=== PATIENT | female | born 1990 | race Asian ===

== ENCOUNTER 2017-04-22 08:00 | Outpatient (CLI) | payer MEDICAID | END 2017-04-22 08:01 | disposition home or self-care (01) | LOC: LAB.N 08:00 | PROVIDERS: ATTEND Physician Assistant | DX: R53.83 Other fatigue (principal) | CPT/HCPCS: 36415; 84443 ==

== ENCOUNTER 2019-06-01 14:31 | Outpatient (CLI) | payer MEDICAID ==
[2019-06-01 18:53] LABS: BASOPHILS % (AUTO) 0.4 %; EOSINOPHILS % (AUTO) 0.4 %; HGB - HEMOGLOBIN 13.5 g/dL (12.0-16.0); LYMPHOCYTES # (AUTO) 2.3 10^3/uL (1.5-3.5); LYMPHOCYTES % (AUTO) 33.6 %; MEAN CORPUSCULAR HGB CONC 33.3 g/dL (32.0-36.0); MEAN CORPUSCULAR VOLUME 90.2 fL (81.0-99.0); MEAN PLATELET VOLUME 11.7 fL (7.9-10.8); MONOCYTES # (AUTO) 0.4 10^3/uL (0.0-1.0); MONOCYTES % (AUTO) 5.3 %; NEUTROPHILS # (AUTO) 4.1 10^3/uL (1.5-6.6); PLT - PLATELET COUNT 211 10^3/uL (130-450); WHITE BLOOD COUNT 6.9 x10^3/uL (4.8-10.8)
[2019-06-01 19:07] LABS: CALCIUM 9.9 mg/dL (8.5-10.3); CREATININE 0.8 mg/dL (0.4-1.0)
== END 2019-06-01 23:59 | disposition home or self-care (01) ==
LOC: LAB.N 14:31
PROVIDERS: ATTEND Physician Assistant Medical
DX: F41.1 Generalized anxiety disorder (principal); I10 Essential (primary) hypertension; K21.9 Gastro-esophageal reflux disease without esophagitis
CPT/HCPCS: 36415; 80048; 84443; 85025

== ENCOUNTER 2020-01-24 12:55 | Outpatient (CLI) | payer MEDICAID ==
--- NOTE | 2020-01-24 14:34 | Ultrasound Report ---
Reason: POSITIVE TEST Procedure Date: 01/24/2020 Accession Number: [id number] / [id number] Procedure: US - OB First Trimester CPT Code: Final Report FULL RESULT: EXAM: FIRST TRIMESTER OBSTETRIC ULTRASOUND (Less than 11 weeks) EXAM DATE: 01/24/2020 01:36 PM. CLINICAL HISTORY: POSITIVE TEST. LMP: 11/28/2019. COMPARISONS: None. TECHNIQUE: Transabdominal ultrasound examination with static image documentation. CLINICAL DATES: EGA 8 weeks 1 day with YUMIKO 09/03/2020 based on LMP. ASSESSMENT: Gestational Sac: Single intrauterine. Mean gestational sac diameter: 27.0 mm = 7 weeks 5 days. Embryo: CRL (crown-rump length) 13.8 mm = 7 weeks 5 days. Cardiac activity: 168 beats per minute. Yolk sac: 3 mm. Amniotic fluid: Not accurately assessed at this gestational age. Early placenta: Not visible at this gestational age. Other: No perigestational fluid collection demonstrated. MATERNAL STRUCTURES: Uterus: Retroverted. Unremarkable. Cervix: Closed. Right Ovary/Adnexa: The ovary measures 4 x 3.1 x 2.2 cm, volume 14.3 cc. 1.8 x 1.3 x 2.0 cm corpus luteum. Left Ovary/Adnexa: The ovary measures 2.8 x 1.9 x 1.5 cm, volume 4.2 cc. Unremarkable. Free Fluid: None. Other: None. IMPRESSION: 1. Single viable intrauterine at EGA 7 weeks 5 days with YUMIKO 09/06/2020 based on crown-rump length, which is concordant with clinical dates. 2. Assigned dating is YUMIKO 09/06/2020 based on current ultrasound. RADIA
== END 2020-01-24 12:56 | disposition home or self-care (01) ==
LOC: DI 12:55
PROVIDERS: ATTEND Advanced Practice Midwife
DX: Z32.01 Encounter for pregnancy test, result positive (principal)
CPT/HCPCS: 76801

== ENCOUNTER 2020-02-09 08:00 | Outpatient (CLI) | payer MEDICAID ==
[2020-02-09 11:57] LABS: MUDS CUTOFF CONCENTRATIONS CUTOFF CONC BELOW:
[2020-02-09 18:12] LABS: BASOPHILS % (AUTO) 0.3 %; EOSINOPHILS % (AUTO) 0.4 %; HGB - HEMOGLOBIN 11.3 g/dL (12.0-16.0); LYMPHOCYTES # (AUTO) 1.7 10^3/uL (1.5-3.5); LYMPHOCYTES % (AUTO) 24.1 %; MEAN CORPUSCULAR HEMOGLOBIN 31.5 pg (27.0-31.0); MEAN CORPUSCULAR HGB CONC 33.1 g/dL (32.0-36.0); MEAN PLATELET VOLUME 11.5 fL (7.9-10.8); MONOCYTES # (AUTO) 0.3 10^3/uL (0.0-1.0); MONOCYTES % (AUTO) 4.4 %; NEUTROPHILS # (AUTO) 5.1 10^3/uL (1.5-6.6); NEUTROPHILS % (AUTO) 70.4 %; PLT - PLATELET COUNT 184 10^3/uL (130-450); RED BLOOD COUNT 3.59 10^6/uL (4.20-5.40); RED CELL DISTRIBUTION WIDTH 13.2 % (12.0-15.0); WHITE BLOOD COUNT 7.2 x10^3/uL (4.8-10.8)
[2020-02-09 18:36] LABS: ALBUMIN/GLOBULIN RATIO 1.4 (1.0-2.2); BILIRUBIN,TOTAL 0.5 mg/dL (0.2-1.0); CALCIUM 9.4 mg/dL (8.5-10.3); CREATININE 0.6 mg/dL (0.4-1.0); TOTAL PROTEIN 6.9 g/dL (6.7-8.2)
[2020-02-09 18:37] LABS: BILIRUBIN,URINE NEGATIVE (NEGATIVE); GLUCOSE, URINE (UA) NEGATIVE (NEGATIVE); KETONES,URINE (UA) NEGATIVE (NEGATIVE); LEUKOCYTE ESTERASE, URINE NEGATIVE (NEGATIVE); NITRITE,URINE NEGATIVE (NEGATIVE); OCCULT BLOOD,URINE NEGATIVE (NEGATIVE); PROTEIN,URINE NEGATIVE (NEGATIVE); UROBILINOGEN,URINE 0.2 (NORMAL) E.U./dL (NORMAL)
[2020-02-09 19:02] LABS: BACTERIA,URINE None Seen /HPF (None Seen); CLARITY,URINE CLEAR (CLEAR); RBC,URINE None Seen /HPF (0-5); SQUAMOUS EPITHELIAL CELL,UR RARE Squamous (<= Few)
[2020-02-09 19:07] LABS: AMPHETAMINE SCREEN,URINE NEGATIVE (NEGATIVE); BENZODIAZEPINES SCREEN, URINE NEGATIVE (NEGATIVE); COCAINE SCREEN URINE NEGATIVE (NEGATIVE); METHADONE SCREEN, URINE NEGATIVE (NEGATIVE); METHAMPHETAMINES SCREEN, URINE NEGATIVE (NEGATIVE); OPIATE SCREEN, URINE NEGATIVE (NEGATIVE); OXYCODONE SCREEN, URINE NEGATIVE (NEGATIVE); PROPOXYPHENE SCREEN, URINE NEGATIVE (NEGATIVE); TRICYCLIC ANTIDEPRESSANT,URINE NEGATIVE (NEGATIVE)
[2020-02-10 10:55] LABS: HIV AG/AB 4TH GEN NON-REACTIVE (NON-REACTIVE)
[2020-02-10 13:04] LABS: HEPATITIS B SURFACE ANTIGEN NON-REACTIVE (NON-REACTIVE)
== END 2020-02-09 23:59 | disposition home or self-care (01) ==
LOC: LAB.WCP 08:00
PROVIDERS: ATTEND Obstetrics & Gynecology
DX: Z36.89 Encounter for other specified antenatal screening (principal); O16.9 Unspecified maternal hypertension, unspecified trimester; E66.9 Obesity, unspecified
CPT/HCPCS: 36415; 80053; 80306; 81001; 81599; 82570; 83497; 84156; 85025; 86592; 86762; 86850; 86900; 86901; 87086; 87340; 87389; 87522

== ENCOUNTER 2020-02-10 07:00 | Outpatient (CLI) | payer MEDICAID ==
[2020-02-10 19:58] LABS: CREATININE 24 HOUR,URINE 1610 mg/24h (600-1800); CREATININE,URINE 57.5 mg/dL; TOTAL VOLUME 24HRS,URINE 2800 mL
[2020-02-10 20:20] LABS: TOTAL PROTEIN,URINE TIMED < 6 mg/dL
== END 2020-02-10 23:59 | disposition home or self-care (01) ==
LOC: LAB.R 07:00
PROVIDERS: ATTEND Obstetrics & Gynecology
DX: O16.9 Unspecified maternal hypertension, unspecified trimester (principal)
CPT/HCPCS: 81599; 82570; 84156

== ENCOUNTER 2020-04-03 12:17 | Outpatient (CLI) | payer MEDICAID | END 2020-04-03 12:18 | disposition home or self-care (01) | LOC: LAB 12:17 | PROVIDERS: ATTEND Obstetrics & Gynecology | DX: O99.019 Anemia complicating pregnancy, unspecified trimester (principal); D64.9 Anemia, unspecified; Z3A.00 Weeks of gestation of pregnancy not specified | CPT/HCPCS: 36415; 81511; 81599; 82728; 83021; 83540; 85014; 85018; 85041 ==

== ENCOUNTER 2020-04-18 15:53 | Outpatient (CLI) | payer MEDICAID ==
--- NOTE | 2020-04-19 11:09 | Ultrasound Report ---
PROCEDURE: OB Detailed Eval INDICATIONS: SUPERVISION OF NORMAL OUTSIDE/PRIOR DATING DATA: Last menstrual period (LMP): 11/28/19. LMP-based estimated date of delivery (YUMIKO): 09/03/20. First dating scan (date and location): 01/24/20. Estimated date of delivery (YUMIKO) from first dating scan: 09/06/20. TECHNIQUE: Real-time scanning was performed of the fetus, with image documentation and biometric measurements. COMPARISON: 11/24/19. FINDINGS: General: A single living intrauterine gestation is present. Presentation: Transverse, variable. Placenta: Placental position is fundal, without previa. Amniotic fluid index: 14.8 cm, at the 57th percentile for gestational age. Largest pocket 4.2 cm. heart rate: 157 beats per minute. Maternal cervical canal: 4.4 cm long; normal length is 2.5 cm or more. biometrics: Biparietal diameter: 4.8 cm, 20 weeks 3 days Head circumference: 17.5 cm, 20 weeks Abdominal circumference: 15 cm, 20 weeks 2 days Femur length: 3.2 cm, 20 weeks 0 days Estimated gestational age from initial scan: 19 weeks 6 days Composite gestational age from present scan: 20 weeks 2 days Estimated weight and percentile: 337 g, 64th percentile Measurement variability in biometric dating: +/- 10 days from 12-20 weeks gestation, +/- 2 weeks from 20-30 weeks gestation, +/- 3 weeks at 30 weeks gestation or later. Anatomic survey: Neuro: Ventricles are normal at less than 10 mm. Cisterna magna is normal at 3-11 mm. Cerebellum i s normal in size and morphology. Nuchal skin fold: Normal at less than 6 mm between 14 and 20 weeks gestational age. Face: Nose and lips, facial profile are normal. Spine: No evidence for spina bifida. Heart: 4-chambered heart is present, with normal ventricular outflow tracts. Diaphragm: Diaphragm is intact. Stomach: Left-sided stomach is present. Kidneys: No hydronephrosis. Normal is less than 5 mm in 2nd trimester, less than 7 mm in 3rd trimester. Cord: 3 vessel cord has orthotopic insertion. Bladder: Normal in size. Extremities: All 4 extremities are visualized. IMPRESSION: 1. Single living intrauterine demonstrating appropriate interval growth with estimated feta l weight at 64th percentile. 2. anatomic survey within normal limits. Reviewed by: Ramos Giron MD on 04/19/2020 11:07 AM PDT Approved by: Ramos Giron MD on 04/19/2020 11:07 AM PDT Station ID: [id number]
== END 2020-04-18 15:54 | disposition home or self-care (01) ==
LOC: DI 15:53
PROVIDERS: ATTEND Obstetrics & Gynecology
DX: Z34.80 Encounter for supervision of other normal pregnancy, unspecified trimester (principal)
CPT/HCPCS: 76811

== ENCOUNTER 2020-07-24 12:17 | Outpatient (CLI) | payer MEDICAID ==
[2020-07-24] MEDS ORDERED: FERRIC GLUCONATE 125 MG in SODIUM CHLORIDE 0.9% 100ML 100 ML IV ONE (12:30)
[2020-07-24 12:55] VITALS: BP 125/78
--- NOTE | 2020-07-24 14:46 | Ultrasound Report ---
PROCEDURE: OB Limited INDICATIONS: Chronic HTN, YUMIKO 09/03/2020 OUTSIDE/PRIOR DATING DATA: Last menstrual period (LMP): 11/28/2019. LMP-based estimated date of delivery (YUMIKO): 09/03/2020. First dating scan (date and location): 01/24/2020. Estimated date of delivery (YUMIKO) from first dating scan: 09/03/2020. TECHNIQUE: Real-time scanning was performed of the fetus, with image documentation. COMPARISON: OB ultrasound 07/19/2020 FINDINGS: A single living intrauterine gestation is present. Presentation: Vertex Placenta: Placental position is fundal, without previa. Amniotic fluid index: 8 cm, 4.8 percentile for gestational age. Largest pocket 5.2 cm. A gestational age of 19 weeks 6 days, SUE was measured at the 57th percentile. heart rate: 136 beats per minutes. Maternal cervical canal: 3.5 cm long; normal length is 2.5 cm or more. Estimated gestational age from initial scan: 34 weeks 1 day. BPP: Tone: 2 Movement: 2 Respiration: 2 SUE: 2 IMPRESSION: 1. Single live intrauterine with BPP of 8 out of 8. 2. SUE measures the 4.8 percentile for gestational age, with largest pocket measuring 5.2 cm. Clinica l and ultrasound imaging follow-up is recommended. Reviewed by: Margaux Elizabeth MD on 07/24/2020 2:44 PM PST Approved by: Margaux Elizabeth MD on 07/24/2020 2:44 PM PST Station ID: [id number]
--- NOTE | 2020-07-28 09:46 | PROCEDURE REPORT ---
- HPI Diagnosis/Indication for NST: Pre- Hypertension Current EDU 09/03/20 Gestation 34 Weeks and 1 Days 2 Para 1 Vital Signs Temperature 98.8 F 07/24/20 12:53 Heart Rate 86 07/24/20 12:53 Respiratory Rate 18 07/24/20 12:53 Blood Pressure 125/78 07/24/20 12:53 O2 Saturation 99 07/24/20 12:53 Temperature 98.8 F 07/24/20 12:53 Heart Rate 86 07/24/20 12:53 Respiratory Rate 18 07/24/20 12:53 Blood Pressure 125/78 07/24/20 12:53 O2 Saturation 99 07/24/20 12:53 - NST Procedure NST Procedure Start Date 07/24/20 Start Time 12:12 Stop Time 12:48 Vibroacoustic Stimulation Used No Patient States Movement Yes - Results and Plan Findings/Impression: NST done for routine surveillance. Pt also received a scheduled IV iron transfusion in triage for her anemia. Category 1 NST [employer] [employer] neg Plan: continue ongoing outpt surveillance schedule.
== END 2020-07-24 14:00 | disposition home or self-care (01) ==
LOC: WFO 12:17 → MERGE 12:17 → FBP 12:18 → WFO 14:00
PROVIDERS: ATTEND Obstetrics & Gynecology
DX: O13.3 Gestational [pregnancy-induced] hypertension without significant proteinuria, third trimester (principal); O99.013 Anemia complicating pregnancy, third trimester; D64.9 Anemia, unspecified; Z3A.34 34 weeks gestation of pregnancy
CPT/HCPCS: 59025; 76815; 96365; J2916

== ENCOUNTER 2020-07-27 13:05 | Outpatient (CLI) | payer MEDICAID ==
[2020-07-27 13:27] VITALS: BP 122/82
--- NOTE | 2020-07-28 09:44 | PROCEDURE REPORT ---
- HPI Diagnosis/Indication for NST: Pre- Hypertension Current EDU 09/03/20 Gestation 34 Weeks and 4 Days 2 Para 1 Vital Signs Temperature 98.2 F 07/27/20 13:22 Heart Rate 87 07/27/20 13:22 Respiratory Rate 16 07/27/20 13:22 Blood Pressure 122/82 H 07/27/20 13:22 O2 Saturation 100 07/27/20 13:22 Temperature 98.2 F 07/27/20 13:22 Heart Rate 87 07/27/20 13:22 Respiratory Rate 16 07/27/20 13:22 Blood Pressure 122/82 H 07/27/20 13:22 O2 Saturation 100 07/27/20 13:22 - NST Procedure NST Procedure Start Date 07/27/20 Start Time 13:21 Stop Time 14:25 Vibroacoustic Stimulation Used No Patient States Movement Yes - Results and Plan Findings/Impression: Category 1 NST [place] neg Continue outpatient surveillance
== END 2020-07-27 14:30 | disposition home or self-care (01) ==
LOC: WFO 13:05 → FBP 13:14 → WFO 14:30
PROVIDERS: ATTEND Obstetrics & Gynecology
DX: O10.913 Unspecified pre-existing hypertension complicating pregnancy, third trimester (principal); Z3A.34 34 weeks gestation of pregnancy
CPT/HCPCS: 59025

== ENCOUNTER 2020-08-03 13:52 | Outpatient (CLI) | payer MEDICAID | END 2020-08-03 13:53 | disposition home or self-care (01) | LOC: WFO 13:52 | PROVIDERS: ATTEND Obstetrics & Gynecology | DX: O13.9 Gestational [pregnancy-induced] hypertension without significant proteinuria, unspecified trimester (principal) ==

== ENCOUNTER 2020-08-04 14:39 | Outpatient (CLI) | payer MEDICAID ==
--- NOTE | 2020-08-04 17:01 | Ultrasound Report ---
PROCEDURE: OB F/U or Repeat INDICATIONS: SUPER OF HIGH RISK PREG, HTN COMPLICATING PREG OUTSIDE/PRIOR DATING DATA: Last menstrual period (LMP): 3.920. LMP-based estimated date of delivery (YUMIKO): 21420. First dating scan (date and location): 5.20. Estimated date of delivery (YUMIKO) from first dating scan: . TECHNIQUE: Real-time scanning was performed of the fetus, with image documentation and biometric measurements. Endovaginal scanning: COMPARISON: None. FINDINGS: General: A single living intrauterine gestation is present. Presentation: Vertex Placenta: Placental position is maternal right, without previa. Amniotic fluid index: 9.4 cm, 11.5th percentile for gestational age. heart rate: 139 beats per minute. Maternal cervical canal: 5.6 cm long; normal length is 2.5 cm or more. biometrics: Biparietal diameter: 84 mm; 33 weeks 6 days Head circumference: 313 mm; 35 weeks 0 days Abdominal circumference: 326 mm; 36 weeks 4 days Femur length: 65 mm; 33 weeks 2 days Estimated gestational age from initial scan: 35 weeks 5 days. Composite gestational age from present scan: 36 weeks 2 days Estimated weight and percentile: 2637 g, which is at the 37th percentile for gestational age Measurement variability in biometric dating: +/- 10 days from 12-20 weeks gestation, +/- 2 weeks from 20-30 weeks gestation, +/- 3 weeks at 30 weeks gestation or more. Limited survey of anatomy currently includes normal chest/diaphragm, stomach/abdomen, bilateral renal regions, urinary bladder/pelvis, right upper and lower extremities. IMPRESSION: 1. Single living intrauterine gestation. 2. Estimated weight is at the 37th percentile for gestational age. Reviewed by: Leah Villagran MD on 08/04/2020 4:00 PM [facility] Approved by: Leah Villagran MD on 08/04/2020 4:00 PM [facility] Station ID: [id number]
== END 2020-08-04 14:40 | disposition home or self-care (01) ==
LOC: DI 14:39
PROVIDERS: ATTEND Obstetrics & Gynecology
DX: O09.90 Supervision of high risk pregnancy, unspecified, unspecified trimester (principal); O16.9 Unspecified maternal hypertension, unspecified trimester; Z3A.35 35 weeks gestation of pregnancy
CPT/HCPCS: 76816

== ENCOUNTER 2020-08-07 | Outpatient (CLI) | payer MEDICAID ==
--- NOTE | 2020-08-10 18:13 | PROCEDURE REPORT ---
- HPI Diagnosis/Indication for NST: Pre- Hypertension Current EDU 09/03/20 Gestation 36 Weeks and 1 Days 2 Para 1 Vital Signs Temperature 97.9 F 08/07/20 12:45 Heart Rate 67 08/07/20 12:45 Respiratory Rate 16 08/07/20 12:45 Blood Pressure 134/89 H 08/07/20 12:45 O2 Saturation 99 08/07/20 12:45 Temperature 97.9 F 08/07/20 12:45 Heart Rate 67 08/07/20 12:45 Respiratory Rate 16 08/07/20 12:45 Blood Pressure 134/89 H 08/07/20 12:45 O2 Saturation 99 08/07/20 12:45 - NST Procedure NST Procedure Start Date 08/07/20 Start Time 12:42 Stop Time 13:05 Vibroacoustic Stimulation Used No Patient States Movement Yes EFM 135 mod lucero 15x15 accels no decels TOCO: irritable - Results and Plan Findings/Impression: 30 yo at 36+1 wga with complicated by CHTN Cat I tracing/RRNST Cont with twice weekly NST and weekly SUE
== END 2020-08-07 13:09 | disposition home or self-care (01) ==
CPT/HCPCS: 59025; 87491; 87591; 87661; 87797; 87801

== ENCOUNTER 2020-08-07 08:00 | Outpatient (CLI) | payer MEDICAID ==
[2020-08-08 22:00] LABS: CANDIDA GROUP DNA NEGATIVE (NEGATIVE); CANDIDA KRUSEI DNA NEGATIVE (NEGATIVE); TRICHOMONAS VAGINALIS DNA NEGATIVE (NEGATIVE)
[2020-08-08 23:38] LABS: TRICHOMONAS VAGINALIS DNA NEGATIVE (NEGATIVE)
== END 2020-08-07 23:59 | disposition home or self-care (01) ==
LOC: LAB.R 08:00
PROVIDERS: ATTEND Obstetrics & Gynecology
DX: Z36.85 Encounter for antenatal screening for Streptococcus B (principal); Z11.3 Encounter for screening for infections with a predominantly sexual mode of transmission; Z36.89 Encounter for other specified antenatal screening
CPT/HCPCS: 87491; 87591; 87661; 87797; 87801

== ENCOUNTER 2020-08-10 12:31 | Outpatient (CLI) | payer MEDICAID ==
--- NOTE | 2020-08-10 14:20 | Ultrasound Report ---
PROCEDURE: OB Limited INDICATIONS: HTN COMPLICATING OUTSIDE/PRIOR DATING DATA: Last menstrual period (LMP): 11/28/2019. LMP-based estimated date of delivery (YUMIKO): 09/03/2020. First dating scan (date and location): 01/24/2020. Gene Jacobs Estimated date of delivery (YUMIKO) from first dating scan: 09/06/2020. TECHNIQUE: Real-time scanning was performed of the fetus, with image documentation. COMPARISON: None. FINDINGS: A single living intrauterine gestation is present. Presentation: Cephalic Placenta: Placental position is maternal right, without previa. Amniotic fluid index: 7.2 cm. 4%. heart rate: 149 beats per minutes. Maternal cervical canal: Closed and measures 3.9 cm. MVP = 3 cm. Estimated gestational age from initial scan: 09/06/2020. IMPRESSION: 1. Oligohydramnios with an amniotic fluid index is 7.2 cm, 4th percentile for age. 2. MVP = 3 cm. Reviewed by: Angelo Katz on 08/10/2020 2:19 PM PST Approved by: Angelo Katz on 08/10/2020 2:19 PM PST Station ID: [id number]
== END 2020-08-10 12:32 | disposition home or self-care (01) ==
LOC: DI 12:31
PROVIDERS: ATTEND Obstetrics & Gynecology
DX: O16.2 Unspecified maternal hypertension, second trimester (principal); O41.02X0 Oligohydramnios, second trimester, not applicable or unspecified
CPT/HCPCS: 76815

== ENCOUNTER 2020-08-10 13:01 | Outpatient (CLI) | payer MEDICAID ==
[2020-08-10 13:19] VITALS: BP 124/77
--- NOTE | 2020-08-10 18:05 | PROCEDURE REPORT ---
- HPI Diagnosis/Indication for NST: Other (CHTN) Current EDU 09/03/20 Gestation 36 Weeks and 4 Days 2 Para 1 Vital Signs Temperature 97.5 F L 08/10/20 13:18 Heart Rate 73 08/10/20 13:18 Respiratory Rate 16 08/10/20 13:18 Blood Pressure 124/77 08/10/20 13:18 O2 Saturation 100 08/10/20 13:18 Temperature 97.5 F L 08/10/20 13:18 Heart Rate 73 08/10/20 13:18 Respiratory Rate 16 08/10/20 13:18 Blood Pressure 124/77 08/10/20 13:18 O2 Saturation 100 08/10/20 13:18 - NST Procedure NST Procedure Start Date 08/10/20 Start Time 13:12 Stop Time 14:10 Vibroacoustic Stimulation Used No Patient States Movement Yes EFM 130 mod lucero 15x15 accels no decels TOCO: irritable SUE 7.4 MVP 3 - Results and Plan Findings/Impression: 30 yo at 36+4 wga with affected by CHTN here for NST/SUE Cat I tracing Borderline SUE Offered IV hydration vs oral hydration overnight Patient opting for oral hydration and will return tomorrow for repeat SUE
== END 2020-08-10 14:15 | disposition home or self-care (01) ==
LOC: WFO 13:01 → FBP 13:06 → WFO 14:15
PROVIDERS: ATTEND Obstetrics & Gynecology
DX: O10.913 Unspecified pre-existing hypertension complicating pregnancy, third trimester (principal); Z3A.36 36 weeks gestation of pregnancy; O41.02X0 Oligohydramnios, second trimester, not applicable or unspecified
CPT/HCPCS: 59025

== ENCOUNTER 2020-08-11 13:08 | Outpatient (CLI) | payer MEDICAID ==
[2020-08-11 13:26] VITALS: BP 131/77
--- NOTE | 2020-08-11 14:29 | PROCEDURE REPORT ---
- HPI Diagnosis/Indication for NST: Other (low SUE (borderline) Vital Signs Temperature 97.4 F L 08/11/20 13:24 Heart Rate 70 08/11/20 13:24 Respiratory Rate 16 08/11/20 13:24 Blood Pressure 131/77 H 08/11/20 13:24 O2 Saturation 100 08/11/20 13:24 Temperature 97.4 F L 08/11/20 13:24 Heart Rate 70 08/11/20 13:24 Respiratory Rate 16 08/11/20 13:24 Blood Pressure 131/77 H 08/11/20 13:24 O2 Saturation 100 08/11/20 13:24 - NST Procedure NST Procedure Start Time 13:12 Stop Time 14:10 EFM 135 mod lucero 15x15 accels no decels TOCO: quiet - Results and Plan Findings/Impression: Cat I tracing Prelim read on SUE 13.4 Cont with twice weekly NST and weekly SUE
--- NOTE | 2020-08-11 15:18 | Ultrasound Report ---
PROCEDURE: OB Limited INDICATIONS: Low fluid OUTSIDE/PRIOR DATING DATA: Last menstrual period (LMP): 11/28/2019. LMP-based estimated date of delivery (YUMIKO): 09/03/2020. First dating scan (date and location): 01/24/2020. Estimated date of delivery (YUMIKO) from first dating scan: 09/06/2020. TECHNIQUE: Real-time scanning was performed of the fetus, with image documentation. COMPARISON: None. FINDINGS: A single living intrauterine gestation is present. Presentation: Cephalic Placenta: Placental position is maternal right, without previa. Amniotic fluid index: 13.2 cm. heart rate: 145 beats per minute. Maternal cervical canal: 3.9 cm long; normal length is 2.5 cm or more. Estimated gestational age: 36 weeks 5 days. IMPRESSION: Single live intrauterine gestation with normal anatomic survey, evaluation limited by advanced gestat ional age. heart rate 145 bpm. SUE 13.2 cm. Reviewed by: Alin Dhillon MD on 08/11/2020 3:17 PM PST Approved by: Alin Dhillon MD on 08/11/2020 3:17 PM PST Station ID: [id number]
== END 2020-08-11 14:45 | disposition home or self-care (01) ==
LOC: WFO 13:08 → FBP 13:10 → WFO 14:45
PROVIDERS: ATTEND Obstetrics & Gynecology
DX: O41.03X0 Oligohydramnios, third trimester, not applicable or unspecified (principal)
CPT/HCPCS: 59025

== ENCOUNTER 2020-08-14 12:31 | Outpatient (CLI) | payer MEDICAID ==
[2020-08-14 12:50] VITALS: BP 126/80
--- NOTE | 2020-08-15 17:39 | PROCEDURE REPORT ---
- HPI Diagnosis/Indication for NST: Pre- Hypertension Current EDU 09/03/20 Gestation 37 Weeks and 1 Days 2 Para 1 Vital Signs Temperature 98.4 F 08/14/20 12:46 Heart Rate 86 08/14/20 12:46 Respiratory Rate 18 08/14/20 12:46 Blood Pressure 126/80 08/14/20 12:46 O2 Saturation 100 08/14/20 12:46 Temperature 98.4 F 08/14/20 12:46 Heart Rate 86 08/14/20 12:46 Respiratory Rate 18 08/14/20 12:46 Blood Pressure 126/80 08/14/20 12:46 O2 Saturation 100 08/14/20 12:46 - NST Procedure NST Procedure Start Date 08/14/20 Start Time 12:42 Stop Time 13:05 Vibroacoustic Stimulation Used No Patient States Movement Yes EFM 125 mod lucero 15x15 accels no decels TOCO: quiet - Results and Plan Findings/Impression: 30 yo at 37+1 wga with CHTN here for NST Cat I tracing Cont with twice weekly NST/weekly SUE CS at 39 wga
== END 2020-08-14 13:09 | disposition home or self-care (01) ==
LOC: WFO 12:31 → FBP 12:35 → WFO 13:09
PROVIDERS: ATTEND Obstetrics & Gynecology
DX: O13.3 Gestational [pregnancy-induced] hypertension without significant proteinuria, third trimester (principal); Z3A.37 37 weeks gestation of pregnancy
CPT/HCPCS: 59025

== ENCOUNTER 2020-08-17 12:40 | Outpatient (CLI) | payer MEDICAID ==
[2020-08-17 13:35] VITALS: BP 123/72
--- NOTE | 2020-08-17 13:47 | Ultrasound Report ---
PROCEDURE: OB Limited INDICATIONS: HTN COMPLICATING PREG OUTSIDE/PRIOR DATING DATA: Last menstrual period (LMP): 11/28/2019. LMP-based estimated date of delivery (YUMIKO): 09/03/2020. First dating scan (date and location): 01/24/2020. Estimated date of delivery (YUMIKO) from first dating scan: 09/06/2020. TECHNIQUE: Real-time scanning was performed of the fetus, with image documentation. Endovaginal scanning: Not performed COMPARISON: 08/11/2020, 08/10/2020 FINDINGS: A single living intrauterine gestation is present. Presentation: Vertex Placenta: Placental position is right lateral, without previa. Amniotic fluid index: 11.8 cm, normal for gestational age. Largest pocket measures 4.5 cm. Amount of amniotic fluid is at 33.6 percentile. heart rate: 153 beats per minutes. Maternal cervical canal: 4 cm long; normal length is 2.5 cm or more. Estimated gestational age from initial scan: 37 weeks 4 days. chest, bilateral kidneys, stomach, and bladder are visualized and are within normal limits. IMPRESSION: 1. Single live intrauterine with fetus in vertex presentation. heart rate is 153 bpm. 2. SUE equals 11.8 cm which is at 33.6 percentile. Largest pocket measures 4.5 cm. Reviewed by: Luis Rai MD on 08/17/2020 1:46 PM PST Approved by: Luis Rai MD on 08/17/2020 1:46 PM PST Station ID: [id number]
--- NOTE | 2020-08-18 10:12 | PROCEDURE REPORT ---
- HPI Diagnosis/Indication for NST: Other (CHTN) Current EDU 09/03/20 Gestation 37 Weeks and 4 Days 2 Para 1 Vital Signs Temperature 36.5 C 08/17/20 13:33 Heart Rate 84 08/17/20 13:33 Respiratory Rate 16 08/17/20 13:33 Blood Pressure 123/72 08/17/20 13:33 O2 Saturation 100 08/17/20 13:33 Temperature 36.5 C 08/17/20 13:33 Heart Rate 84 08/17/20 13:33 Respiratory Rate 16 08/17/20 13:33 Blood Pressure 123/72 08/17/20 13:33 O2 Saturation 100 08/17/20 13:33 - NST Procedure NST Procedure Start Date 08/17/20 Start Time 13:33 Stop Time 13:05 Vibroacoustic Stimulation Used No Patient States Movement Yes - Results and Plan Findings/Impression: reactive NST Plan: continue antinatal testing
== END 2020-08-17 14:00 | disposition home or self-care (01) ==
LOC: DI 12:40 → FBP 13:10 → DI 14:00
PROVIDERS: ATTEND Obstetrics & Gynecology
DX: O10.913 Unspecified pre-existing hypertension complicating pregnancy, third trimester (principal); Z3A.37 37 weeks gestation of pregnancy
CPT/HCPCS: 59025

== ENCOUNTER 2020-08-21 11:34 | Outpatient (CLI) | payer MEDICAID ==
--- NOTE | 2020-08-21 23:56 | PROCEDURE REPORT ---
- HPI Diagnosis/Indication for NST: Pre- Hypertension - NST Procedure NST Procedure Start Time 13:33 Stop Time 13:05 - Results and Plan Findings/Impression: Category 1 NST [place] neg Continue routine surveillance
[2020-08-23 15:43] VITALS: BP 119/94
== END 2020-08-21 12:15 | disposition home or self-care (01) ==
LOC: WFO 11:34 → FBP 11:58 → WFO 12:15
PROVIDERS: ATTEND Obstetrics & Gynecology
DX: O10.919 Unspecified pre-existing hypertension complicating pregnancy, unspecified trimester (principal); Z3A.00 Weeks of gestation of pregnancy not specified
CPT/HCPCS: 59025; 99212

== ENCOUNTER 2020-08-24 12:22 | Outpatient (CLI) | payer MEDICAID ==
--- NOTE | 2020-08-24 17:26 | Ultrasound Report ---
PROCEDURE: OB Limited INDICATIONS: HTN COMPLICATING PREG OUTSIDE/PRIOR DATING DATA: Last menstrual period (LMP): 11/28/2019. LMP-based estimated date of delivery (YUMIKO): 09/03/2020. First dating scan (date and location): 01/24/2020. Estimated date of delivery (YUMIKO) from first dating scan: 09/06/2020. TECHNIQUE: Real-time scanning was performed of the fetus, with image documentation. COMPARISON: 08/17/2020 FINDINGS: A single living intrauterine gestation is present. Presentation: Vertex Placenta: Placental position is right lateral, without previa. Amniotic fluid index: 10.9 cm cm, 28th percentile for gestational age. Largest pocket 4.8 cm. heart rate: 1:30 beats per minutes. Maternal cervical canal: 4 cm long; normal length is 2.5 cm or more. Estimated gestational age from initial scan: 38.4. IMPRESSION: 1. SUE is at the 28th percentile slightly decreased from 34th percentile on prior exam. 2. Single live intrauterine . Reviewed by: Margaux Elizabeth MD on 08/24/2020 5:25 PM PST Approved by: Margaux Elizabeth MD on 08/24/2020 5:25 PM PST Station ID: [id number]
== END 2020-08-24 12:23 | disposition home or self-care (01) ==
LOC: DI 12:22
PROVIDERS: ATTEND Obstetrics & Gynecology
DX: O10.913 Unspecified pre-existing hypertension complicating pregnancy, third trimester (principal); Z3A.38 38 weeks gestation of pregnancy

== ENCOUNTER 2020-08-24 12:50 | Outpatient (CLI) | payer MEDICAID ==
[2020-08-24 13:15] VITALS: BP 119/69
--- NOTE | 2020-08-25 09:40 | PROCEDURE REPORT ---
- HPI Diagnosis/Indication for NST: Pre- Hypertension Current EDU 09/03/20 Gestation 38 Weeks and 4 Days 2 Para 1 Vital Signs Temperature 98.4 F 08/24/20 13:13 Heart Rate 87 08/24/20 13:13 Respiratory Rate 16 08/24/20 13:13 Blood Pressure 119/69 08/24/20 13:13 Temperature 98.4 F 08/24/20 13:13 Heart Rate 87 08/24/20 13:13 Respiratory Rate 16 08/24/20 13:13 Blood Pressure 119/69 08/24/20 13:13 O2 Saturation - NST Procedure NST Procedure Start Date 08/24/20 Start Time 13:07 Stop Time 13:43 Vibroacoustic Stimulation Used No Patient States Movement Yes - Results and Plan Findings/Impression: Category 1 NST [place] neg Continue delivery as planned in 3d.
== END 2020-08-24 13:50 | disposition home or self-care (01) ==
LOC: WFO 12:50 → FBP 12:55 → WFO 13:50
PROVIDERS: ATTEND Obstetrics & Gynecology
DX: O10.913 Unspecified pre-existing hypertension complicating pregnancy, third trimester (principal); Z3A.38 38 weeks gestation of pregnancy; Z01.812 Encounter for preprocedural laboratory examination; Z20.828 Contact with and (suspected) exposure to other viral communicable diseases; O34.219 Maternal care for unspecified type scar from previous cesarean delivery
CPT/HCPCS: 59025

== ENCOUNTER 2020-08-24 13:57 | Outpatient (CLI) | payer MEDICAID | END 2020-08-24 13:58 | disposition home or self-care (01) | LOC: LAB 13:57 | PROVIDERS: ATTEND Obstetrics & Gynecology | DX: Z01.812 Encounter for preprocedural laboratory examination (principal); Z20.828 Contact with and (suspected) exposure to other viral communicable diseases; O34.219 Maternal care for unspecified type scar from previous cesarean delivery ==

== ENCOUNTER 2020-08-26 17:25 | Outpatient (CLI) | payer MEDICAID | END 2020-08-26 17:26 | disposition home or self-care (01) | LOC: LAB 17:25 | PROVIDERS: ATTEND Obstetrics & Gynecology | DX: Z53.9 Procedure and treatment not carried out, unspecified reason (principal) ==

== ENCOUNTER 2020-08-27 05:21 | Inpatient (IN) | payer MEDICAID ==
[2020-08-27] MEDS ORDERED: ACETAMINOPHEN 1,000 MG/100 ML 100 ML IV ONE ×2 (05:33→07:55)
[2020-08-27] MEDS ORDERED: ceFAZolin 2 GM in SODIUM CHLORIDE 0.9% 100ML 100 ML IV ONE (05:33)
[2020-08-27] MEDS ORDERED: LACTATED RINGERS 1,000 ML IV SCH ×2 (06:00→11:00)
[2020-08-27] MEDS ORDERED: BUPIVACAINE 0.25%-EPI 1:200000 PF 30 ML VIAL ONE (07:06)
--- NOTE | 2020-08-27 07:17 | ANESTHESIA ---
Pre-Anesthesia VS, & Labs - Diagnosis previous c/s - Procedure repeat c/s Vital Signs: Temp Pulse Resp BP Pulse Ox 36.7 C 70 18 134/87 H 08/27/20 05:57 08/27/20 05:57 08/27/20 05:57 08/27/20 05:57 Height: 5 ft 3 in Weight (kg): 91.626 kg Body Mass Index: 35.7 BMI Classification: Obese - NPO >8 hours - Is Patient ?: Yes Home Medications and Allergies Active Medications Lactated Ringer's (Lr) 1,000 mls @ 125 mls/hr IV .Q8H SHARMILA Last Admin: 08/27/20 06:32 Dose: 125 mls/hr Documented by: labetalol, sertraline Allergies/Adverse Reactions: Allergies Allergy/AdvReac Type Severity Reaction Status Date / Time No Known Drug Allergies Allergy Verified 07/24/20 15:19 Anes History & Medical History - Anesthetic History Family history of Anesthesia Complications: Denies Family history of Malignant Hyperthermia: Denies - Medical History Cardiovascular: reports: Hypertension Pulmonary: reports: None Gastrointestinal: reports: GERD Urinary: reports: None Neuro: reports: None Musculoskeletal: reports: None Endocrine/Autoimmune: reports: None Blood Disorders: reports: Anemia Skin: reports: None Smoking Status: Former smoker Psychosocial: reports: Anxiety History of Cancer?: No - Surgical History Gynecologic: section (under epidural) Exam General: Alert, Oriented x3, Cooperative, No acute distress Dental: WNL Mouth Openin Fingerbreadth Neck Mobility: Normal Mallampati classification: II Thyromental Distance: 4-6 cm Mental/Cognitive Status: Alert/Oriented X3, Normal for patient Plan Anesthesia Type: Spinal Consent for Procedure(s) Verified and Reviewed: Yes Code Status: Attempt Resuscitation ASA classification: 2-Mild systemic disease Is this case an emergency?: No
--- NOTE | 2020-08-27 07:45 | HISTORY & PHYSICAL EXAMINATION ---
Admit History - Visit Reason Visit Reason: Other (Scheduled repeat CS) - : 3 Parity: 1 Care: positive: [facility] Risk/History: positive: induced HTN Smoking Status: Former smoker - Other Maternal History Other Maternal History: Patient is a 30 yo here for scheduled repeat CS Denies LOF/VB/CTX. BPs appropriate Oligo resolved Declines BTL Consents obtained and reconfirmed Dating: LMP 11/28/2019 gives YUMIKO 09/03/2020 Ultrasound on 01/24/2020 at 7 weeks 5 days gives YUMIKO 09/06/2020; consistent with dates Restraining order against FOB 2/2 IPV and meth abuse FOB currently incarcerated CHTN: -On labetalol 200 mg po bid -On ASA -Baseline 24 hour urine and PIH labs wnl -Family hx of cardiomegaly; ordering cards consult. Has not yet seen cardiology -twice weekly NST -growth 37%ile on 08/04/2020 -Borderline SUE at 34 weeks, 08/04/2020 SUE 9.4. Last SUE 13.4 BMI 36 Anxiety: mood improved on sertraline 50 mg O pos/ Rub NON-IMM QUAD wnl Hb electrophoresis and iron wnl FAS wnl, EFW 64%ile, 3VC, fundal placenta TDAP complete Influenza complete Glucola 117 Anemia on bid iron. S/p iron infusions HSV: Denies - Oral (cold sores only). Given rx for valacyclovir for symptoms GBS positive Breast pump: MOD: CS on 08/27/2020. Declined BTL Pap 01/2020 shows ASCUS/HPV positive. Opting for colpo Meds/Allgy - Allergies Allergies/Adverse Reactions: Allergies Allergy/AdvReac Type Severity Reaction Status Date / Time No Known Drug Allergies Allergy Verified 07/24/20 15:19 Review of Systems - Other Findings Other Findings: As per HPI, otherwise remaining systems are negative Physical - Abdominal Exam Vital Signs: Temp Pulse Resp BP Pulse Ox 98.1 F 70 18 134/87 H 08/27/20 05:57 08/27/20 05:57 08/27/20 05:57 08/27/20 05:57 - Monitoring Strip Review: positive: Category I - Other Notes Labor Progress Note/Additional Text: GEN: NAD HEAD: NCAT EYES: No scleral icterus or conjunctival injection NECK: No cervical LAD or TM CV: RRR RESP: CTAB, normal effort ABD: S&NT/ND PSYCH: appropriate affect NEURO: alert and oriented, normal gait and coordination EXT: WWP Plan for Labor - Plan For Labor Plan for Labor: No changes in health hx other than as noted in HPI. Reviewed risks/benefits/alternatives to and BTL Risks include, but are not limited to, bleeding, infection, damage to neatby tissue and organs. On average, EBL of up to 1 liter is considered within normal limits for CS. Risks of blood transfusion include infection Risk of HIV 1/2million nationwide Risk of Hepatitis 1/1 million Risks of transfusion reaction Infection risk moderate given clean/contaminated nature of procedure and IV antibiotics will be given. Damage to nearby tissue and organs including bladder, bowel, ureters, blood vessels, nerves, and fetus Damage may be noted intra-op and may be delayed until after the procedure is complete Reviewed management of complications and efforts to avoid such outcomes but reviewed that they may occur despite our best efforts Confirmed that sterlization is desired Patient understands that tubal ligation is an irreversible process that will result in future infertility Written informed consent obtained.
[2020-08-27] MEDS ORDERED: miSOPROStoL 200 MCG TABLET ONE (07:54)
[2020-08-27] MEDS ORDERED: CARBOPROST TROMETHAMINE 250 MCG/ML AMP IM ONE (07:54)
[2020-08-27] MEDS ORDERED: fentaNYL 100 MCG/2 ML VIAL IVP ONE (07:55)
[2020-08-27] MEDS ORDERED: METHYLERGONOVINE 0.2 MG/ML VIAL ONE (07:55)
[2020-08-27] MEDS ORDERED: PHENYLEPHRINE 10 MG/ML VIAL IV ONE (07:55)
[2020-08-27] MEDS ORDERED: BUPIVACAINE 0.25%-EPI 1:200000 PF 30 ML VIAL SUBQ ONE ×2 (08:08→09:47)
[2020-08-27] MEDS ORDERED: HYDROmorphone 0.5 MG/0.5 ML SYRINGE IVP PRN (09:31)
[2020-08-27] MEDS ORDERED: fentaNYL 100 MCG/2 ML VIAL IVP PRN (09:31)
[2020-08-27] MEDS ORDERED: MORPHINE 2 MG/ML CARPUJECT IVP PRN (09:31)
[2020-08-27] MEDS ORDERED: ONDANSETRON 4 MG/2 ML VIAL IVP PRN (09:31)
[2020-08-27] MEDS ORDERED: NALOXONE 0.4 MG/ML VIAL IVP PRN (09:31)
[2020-08-27] MEDS ORDERED: LACTATED RINGERS 1,000 ML IV ONE (10:00)
[2020-08-27] MEDS ORDERED: OXYTOCIN/SODIUM CHLORIDE 500 ML IV PRN (10:05)
[2020-08-27] MEDS ORDERED: ONDANSETRON ODT 4 MG TABLET TL PRN (10:05)
[2020-08-27] MEDS ORDERED: SODIUM CHLORIDE FLUSH 0.9% 10 ML SYRINGE IVP PRN (10:05)
[2020-08-27] MEDS ORDERED: KETOROLAC 30 MG/ML VIAL IVP ONE (10:08)
--- NOTE | 2020-08-27 10:17 | OPERATIVE REPORT ---
Operative Report - General Admit Date: 08/27/20 Procedure Date: 08/27/20 Planned Procedure: Repeat low transverse Pre-Op Diagnosis: IUP at 39+0 wga, hx of prior , CHTN Procedure Performed: Repeat low transverse Post Op Diagnosis: Same and delivery of term gestation - Procedure Note Primary Surgeon: Jerman Pierson MD Secondary Surgeon: ARIEL Sheldon CNM Anesthesia Provider: Jazmín Jacques CRNA Anesthesia Technique: Spinal Pathology: Placenta for routine discard IV Fluids (mL): 1,200 Estimated Blood Loss (mL): 900 Urine Output (mL): 200 Indications: Patient is a 30 yo at 39+0 wga here for repeat low transverse . has been complicated by chronic hypertension. Findings: Uterus had small divot in the midline of the fundus associated with thinning of the myometrium, suggestive of bicornuate anatomy but two/separate horns were NOT palpated internally. Normal tubes and ovaries. Appendix normal with palpable fecolith. Viable female infant delivered form vertex position with weight and Apgars pending. Complications: None - Other Other Information/Narrative: Risks benefits and alternatives of the procedure were discussed. Written informed consent was obtained. Patient was taken to the operating room where spinal anesthesia was placed and found to be adequate. She was prepped and draped in the usual sterile fashion in the dorsal supine position with a leftward tilt. Ruiz catheter was in place. SCDs were in place and activated. Cefazolin 2 g IV was given as a preoperative antibiotic. Preoperative timeout was performed. A total of 20 cc of 1% lidocaine with epinephrine was injected into the suture line prior to making the incision. A Pfannenstiel incision was made in the skin with a scalpel and carried through the underlying layer of fascia in a combination of sharp and blunt dissection. The fascia was incised in the midline, and the incision was extended laterally with the Perry scissors. The superior aspect of the fascial incision was grasped with the Allen clamps, elevated, and the underlying rectus muscles were dissected off bluntly and sharply using the Perry scissors. Attention was then turned to the inferior aspect of the incision which in a similar fashion was grasped, tented up with Allen clamps, and the underlying rectus muscles dissected off bluntly and sharply using Perry scissors. The rectus muscles were then in the midline. The peritoneum was identified, tented up, and entered bluntly. The peritoneal incision was extended superiorly and inferiorly with good visualization of the bladder. The bladder that blade was then inserted. A bladder flap was created. The lower uterine segment of the uterus was identified, and incised in a transverse fashion with a scalpel. The uterus was entered bluntly. The uterine incision was extended in a craniocaudal fashion by manual stretch. The bladder blade was removed. The infant was delivered from from vertex position with assistance of Kiwi Vacuum with a rigid cup. was delivered with one pull and no pop offs. Baby was wrapped in a warm sterile towel. Delayed cord clamping was performed. After cessation of pulsations, the cord was clamped x2 and cut. The infant was handed off to the waiting pediatric team. The placenta was removed with manual extraction due to mildly adherent placenta. The uterus was exteriorized and cleared of all clots clots and debris via m anual swipe using Ray-Merle x2. The uterine incision was then repaired in a running locked fashion using 0 Vicryl suture. The incisoin was reinforced with a running imbricating layer again using 0-Vicryl suture. Excellent hemostasis was obtained. The uterus was returned to the abdomen. The gutters were cleared of all clots and debris. The pelvis was sloppy wet lap sponges with warm normal saline. The uterine defect was well visualized in normal anatomic position it was noted again to be hemostatic. The peritoneum was then reapproximated with 2-0 Vicryl in a running fashion. The rectus muscles were then reapproximated using interrupted [id number] sutures using 2-0 Chromic. Good hemostasis was noted. The fascia was then closed using 0 Vicryl in a running fashion starting from the left lateral edge to the midline. A second suture was used to close the fascia in a running fashion starting from the right lateral edge and meeting in the midline, agian using 0-Vicryl. The subcutaneous tissue was then irrigated and closed using 2-0 chromic in a running subcutaneous suture. Skin was closed in a running subcuticular suture using 4-0 Monocryl. Steri-Strips were applied to reinforce the incision and dressing was applied. Procedure was well-tolerated and without complication. Sponge lap and needle counts were correct x2. Patient was taken to recovery room in stable condition. [facility] assisted with retraction, delivery of the infant, and suturing.
[2020-08-27] MEDS: KETOROLAC 30 MG/ML VIAL IVP SCH ×4 (10:34→22:56)
[2020-08-27] MEDS ORDERED: DOCUSATE SODIUM 100 MG CAPSULE PO SCH (11:00)
[2020-08-27] MEDS ORDERED: NALBUPHINE 10 MG/ML AMP IVP PRN (11:52)
[2020-08-27] MEDS ORDERED: diphenhydrAMINE INJ 50 MG/ML VIAL IVP PRN (12:19)
[2020-08-27] MEDS: oxyCODONE 5 MG TABLET PO PRN (12:23)
[2020-08-27] MEDS: SERTRALINE 50 MG TABLET PO SCH (12:25)
[2020-08-27] MEDS: LABETALOL 100 MG TABLET PO SCH ×2 (12:26→22:56)
[2020-08-27] MEDS: ACETAMINOPHEN 500 MG TABLET PO SCH ×2 (13:06→17:09)
--- NOTE | 2020-08-27 14:36 | ANESTHESIA POST OP EVALUATION ---
Anesthesia Post Eval - Post Anesthesia Eval Vitals: Last Vital Signs Temp 36.9 C 08/27/20 13:15 Pulse 71 08/27/20 13:15 Resp 16 08/27/20 13:15 BP 122/80 08/27/20 13:15 Pulse Ox 100 08/27/20 13:15 CV Function Including HR & BP: positive: Stable Pain Control: positive: Satisfactory Nausea & Vomiting: positive: Negative Mental Status: positive: Baseline Respiratory Status: Airway Patent Hydration Status: Satisfactory Anesthesia Complications: positive: None
[2020-08-27] MEDS ORDERED: ceFAZolin 2 GM in SODIUM CHLORIDE 0.9% 100ML 100 ML IV SCH (16:00)
[2020-08-27] MEDS ORDERED: SODIUM CHLORIDE FLUSH 0.9% 10 ML SYRINGE IVP SCH (17:00)
[2020-08-27] MEDS: SIMETHICONE CHEW 80 MG TABLET PO PRN (17:09)
[2020-08-28] MEDS: ACETAMINOPHEN 500 MG TABLET PO SCH ×3 (01:32→17:31)
[2020-08-28] MEDS: oxyCODONE 5 MG TABLET PO PRN ×5 (01:32→21:08)
[2020-08-28] MEDS: KETOROLAC 30 MG/ML VIAL IVP SCH (05:02)
[2020-08-28 05:34] LABS: BASOPHILS % (AUTO) 0.2 %; EOSINOPHILS % (AUTO) 0.2 %; HGB - HEMOGLOBIN 8.9 g/dL (12.0-16.0); LYMPHOCYTES # (AUTO) 1.2 10^3/uL (1.5-3.5); LYMPHOCYTES % (AUTO) 14.5 %; MEAN CORPUSCULAR HEMOGLOBIN 32.6 pg (27.0-31.0); MEAN CORPUSCULAR HGB CONC 34.6 g/dL (32.0-36.0); MEAN CORPUSCULAR VOLUME 94.1 fL (81.0-99.0); MEAN PLATELET VOLUME 11.2 fL (7.9-10.8); MONOCYTES # (AUTO) 0.3 10^3/uL (0.0-1.0); MONOCYTES % (AUTO) 3.7 %; NEUTROPHILS # (AUTO) 6.8 10^3/uL (1.5-6.6); PLT - PLATELET COUNT 112 10^3/uL (130-450); RED BLOOD COUNT 2.73 10^6/uL (4.20-5.40); RED CELL DISTRIBUTION WIDTH 13.2 % (12.0-15.0); WHITE BLOOD COUNT 8.3 x10^3/uL (4.8-10.8)
[2020-08-28] MEDS: SIMETHICONE CHEW 80 MG TABLET PO PRN ×2 (08:15→17:31)
[2020-08-28] MEDS ORDERED: SERTRALINE 50 MG TABLET PO SCH (09:00)
[2020-08-28] MEDS: LABETALOL 100 MG TABLET PO SCH ×2 (09:28→21:08)
[2020-08-28] MEDS: SERTRALINE 50 MG TABLET PO SCH (09:31)
[2020-08-28] MEDS: IBUPROFEN 600 MG TABLET PO SCH ×3 (11:35→23:26)
--- NOTE | 2020-08-28 22:11 | PROVIDER PROGRESS NOTE ---
Subjective - Prog Note Date Prog Note Date: 08/28/20 Prog Note Time: 11:00 - Subjective Subjective: Patient is doing well. BF is going well. Has been up and out of bed. Tolerating po. Pain is well managed. Ruiz removed and patient is voiding. Objective - Vital Signs/Intake & Output Reviewed Vital Signs: Yes Vital Signs: Vital Signs x48h Temp Pulse Resp BP Pulse Ox 08/28/20 21:07 98.2 F 68 16 134/82 H 99 08/28/20 16:30 98.4 F 77 17 138/77 H 100 Intake & Output: Intake & Output 08/25/20 08/26/20 08/27/20 08/28/20 23:59 23:59 23:59 23:59 Intake Total 600 Output Total 835 350 Balance -235 -350 - Objective General Appearance: positive: No acute distress Respiratory: positive: No respiratory distress, Breath sounds nml Cardiovascular: positive: Regular rate & rhythm Abdomen: positive: Other (FF below umbi, S&ND, minimally tender. Dressing is CDI) Back: positive: Nml inspection Skin: positive: Color nml Extremities: positive: Non-tender, No pedal edema Neurologic/Psychiatric: positive: Oriented x3 - Lab Results Fish Bones: 08/28/20 05:25 Other Labs: Lab Results x24hrs 08/28/20 Range/Units 05:25 WBC 8.3 (4.8-10.8) x10^3/uL RBC 2.73 L (4.20-5.40) 10^6/uL Hgb 8.9 L (12.0-16.0) g/dL Hct 25.7 L (37.0-47.0) % MCV 94.1 (81.0-99.0) fL MCH 32.6 H (27.0-31.0) pg MCHC 34.6 (32.0-36.0) g/dL RDW 13.2 (12.0-15.0) % Plt Count 112 L (130-450) 10^3/uL MPV 11.2 H (7.9-10.8) fL Neut # (Auto) 6.8 H (1.5-6.6) 10^3/uL Lymph # (Auto) 1.2 L (1.5-3.5) 10^3/uL Shackelford # (Auto) 0.3 (0.0-1.0) 10^3/uL Eos # (Auto) 0.0 (0.0-0.7) 10^3/uL Baso # (Auto) 0.0 (0.0-0.1) 10^3/uL Absolute Nucleated RBC 0.00 x10^3/uL Nucleated RBC % 0.0 /100WBC Assessment/Plan - Problem List (1) deliv NOS-unsp Impression: POD#1: Routine post op care BP in high normal range on labetalol 100 mg po bid HCT 25, no symptoms. Start oral iron Anticipate DC home in am
[2020-08-29] MEDS: ACETAMINOPHEN 500 MG TABLET PO SCH ×2 (01:14→09:54)
[2020-08-29] MEDS: oxyCODONE 5 MG TABLET PO PRN ×4 (01:14→14:10)
[2020-08-29] MEDS: IBUPROFEN 600 MG TABLET PO SCH ×2 (06:04→12:07)
[2020-08-29] MEDS ORDERED: FERROUS SULFATE 325 MG TABLET PO SCH (08:00)
[2020-08-29] MEDS: LABETALOL 100 MG TABLET PO SCH (08:27)
[2020-08-29] MEDS: SERTRALINE 50 MG TABLET PO SCH (08:28)
[2020-08-29 09:54] VITALS: BP 140/76
--- NOTE | 2020-08-29 13:59 | Discharge Plan ---
Discharge Plan Problem Reviewed?: Yes Disposition: Home, Self Care Prescriptions: Docusate Sodium 100Mg Capsule [Colace 100Mg Capsule] 100 - 200 mg PO BID PRN #60 capsule PRN Reason: Constipation Ibuprofen [Motrin] 600 mg PO Q6H PRN #90 tab PRN Reason: Pain oxyCODONE [Roxicodone] 5 mg PO Q4H PRN #24 tablet PRN Reason: Pain Acetaminophen [Tylenol] 650 mg PO Q6H PRN #90 tablet PRN Reason: PRN PAIN &/OR FEVER Activity Restrictions: Additional Comments (No lifting more than 10# for 4 weeks) Shower Restrictions: Yes (No tub baths or hot tubs for 4 weeks) Driving Restrictions: Yes (No driving while on narcotics) Assessment: Ibuprofen 600 mg by mouth every 6 hours as needed for pain Acetaminophen 500-1000 mg by mouth every 8 hours as needed for pain Docusate 100-200 mg by mouth twice a day as needed for constipation Oxycodone 5 mg by mouth every 4 hours as needed for pain Additional Instructions or Follow Up instructions: Nothing in the vagina for 6 weeks: No intercourse, tampons, douching Call for: -Fever greater than 100.5 -Pain that does not improve with pain medication -Heavy bleeding in which you are soaking a pad an hour for 2 hours in a row -Incision becomes hot, hard, red, starts to open, or leaks foul smelling fluid No lifting more than 10# for 4 weeks [address] while on narcotics Ok to shower. Let water run over the incision. Do not soap, scrub, or apply lotion. Pat dry with a clean towel or myron a hairspring assembler. The surgical stickers will start to peel off and you can remove them when they do. Otherwise, the provider will remove them at your one week follow-up appointment. OK to use an unscented sanitary napkin or clean washcloth to keep the incision dry if the belly folds over the incision. No Smoking: If you smoke, Please STOP! Call for help. Follow-up with: Fanny Pierson MD [Provider Admit Priv/Credential] -
--- NOTE | 2020-08-29 14:24 | PROVIDER PROGRESS NOTE ---
Subjective - Prog Note Date Prog Note Date: 08/29/20 Prog Note Time: 14:22 - Subjective Subjective: Patient is up and ambulating, tolerating po, and voiding. Pain is well managed with pain medications. BF going well. BPs controlled. Objective - Vital Signs/Intake & Output Reviewed Vital Signs: Yes Vital Signs: Vital Signs x48h Temp Pulse Resp BP Pulse Ox 08/29/20 09:52 97.9 F 72 16 140/76 H 100 Intake & Output: Intake & Output 08/26/20 08/27/20 08/28/20 08/29/20 23:59 23:59 23:59 23:59 Intake Total 600 Output Total 835 350 Balance -235 -350 - Objective General Appearance: positive: No acute distress Respiratory: positive: Chest non-tender, No respiratory distress, Breath sounds nml Cardiovascular: positive: Regular rate & rhythm Abdomen: positive: Non-tender, Other (Dressing removed. Incision CDI. Soft/ND/NT. FF below umbi) Skin: positive: Color nml Extremities: positive: Non-tender Neurologic/Psychiatric: positive: Oriented x3 - Lab Results Fish Bones: 08/28/20 05:25 Assessment/Plan - Problem List (1) deliv NOS-unsp Impression: POD#2: Meeting goals for discharge Routine DC instructions given
--- NOTE | 2020-09-05 10:22 | DISCHARGE SUMMARY ---
"Discharge Summary Admit Date: 08/27/20 Discharge Date: 08/29/20 Discharging Provider: Kenna Condition at Discharge: Good Discharge Disposition: 01 Home, Self Care Discharge Facility Name: [facility] - DIAGNOSES Admission Diagnoses: IUP at 39+0 wga Chronic hypertension History of prior ; desires repeat - HPI History of Present Illness: Patient is a 30 yo at 29+0 wga here for scheduled repeat CS Denies LOF/VB/CTX. BPs appropriate Oligo resolved Declines BTL Consents obtained and reconfirmed Dating: LMP 11/28/2019 gives YUMIKO 09/03/2020 Ultrasound on 01/24/2020 at 7 weeks 5 days gives YUMIKO 09/06/2020; consistent with dates Restraining order against FOB 2/2 IPV and meth abuse FOB currently incarcerated CHTN: -On labetalol 200 mg po bid -On ASA -Baseline 24 hour urine and PIH labs wnl -twice weekly NST -growth 37%ile on 08/04/2020 -Borderline SUE at 34 weeks, 08/04/2020 SUE 9.4. Last SUE 13.4 - CONSULTS | PROCEDURES Procedures: Repeat low transverse - HOSPITAL COURSE Hospital Course: Patient is a 30 yo at 39+0 wga was admitted for repeat low transverse c- section. has been complicated by chronic hypertension. Procedure was completed on day of admission. Procedure was well tolerated and without compli cation. Infant was delivered with vacuum assistance. Apgars were 9/9 and weight was 3030 g. Posteroperative course was uncomplicated. BPs well controlled on labetalol 100 mg po bid post and baseline depression managed with sertraline. By POD#2, patient and were meeting goals for discharge. Discharged to home. - ALLERGIES Allergies/Adverse Reactions: Allergies Allergy/AdvReac Type Severity Reaction Status Date / Time No Known Drug Allergies Allergy Verified 07/24/20 15:19 - MEDICATIONS Home Medications: Ambulatory Orders Medication Instructions Recorded Confirmed Acetaminophen [Tylenol] 650 mg PO Q6H PRN #90 tablet 08/29/20 Acetaminophen [Tylenol] 650 mg PO Q6H PRN #90 tablet 08/29/20 Docusate Sodium 100Mg Capsule 100 - 200 mg PO BID PRN #60 capsule 08/29/20 [Colace 100Mg Capsule] Docusate Sodium 100Mg Capsule 100 - 200 mg PO BID PRN #60 capsule 08/29/20 [Colace 100Mg Capsule] Ferrous Sulfate 325 mg PO BID #90 tablet.dr 08/29/20 Ibuprofen [Motrin] 600 mg PO Q6H PRN #90 tab 08/29/20 Ibuprofen [Motrin] 600 mg PO Q6H PRN #90 tab 08/29/20 Labetalol [Trandate] 100 mg PO BID #60 tablet 08/29/20 oxyCODONE [Roxicodone] 5 mg PO Q4H PRN #24 tablet 08/29/20 oxyCODONE [Roxicodone] 5 mg PO Q4H PRN #24 tablet 08/29/20 - LABS Result Diagrams: 08/28/20 05:25 - FOLLOW UP Follow Up: 1 week and 6 weeks with Kenna - TIME SPENT Time Spent in Discharge (Minutes): 30"
== END 2020-08-29 15:40 | disposition home or self-care (01) | DRG 788 ==
LOC: FBP 05:21 → MERGE 07:30
PROVIDERS: ADMIT Obstetrics & Gynecology; ATTEND Obstetrics & Gynecology
PROC: 10D00Z1 Extraction of Products of Conception, Low, Open Approach (ICD-10-PCS; principal; 2020-08-27 07:30)
DX: O34.211 Maternal care for low transverse scar from previous cesarean delivery (principal); N85.8 Other specified noninflammatory disorders of uterus; O13.4 Gestational [pregnancy-induced] hypertension without significant proteinuria, complicating childbirth; O99.214 Obesity complicating childbirth; Z3A.39 39 weeks gestation of pregnancy; Z37.0 Single live birth; Z87.891 Personal history of nicotine dependence
CPT/HCPCS: 36415; 85025; 86850; 86900; 86901; A9270; J0131; J1200; J7120; Q0162

== ENCOUNTER 2021-07-22 11:59 | Emergency (ER) | payer MEDICAID ==
[2021-07-22] MEDS ORDERED: MELOXICAM 7.5 MG TABLET PO STA (15:48)
--- NOTE | 2021-07-22 15:50 | ED Physician Documentation ---
PD HPI BACK PAIN - Stated complaint Stated Complaint: BACK/R FOOT PX - Chief complaint Chief Complaint: Back Pain - History obtained from History obtained from: Patient - History of Present Illness Timing - onset: Today Timing - duration: Days (1) Timing - details: Gradual onset Pain level max: 8 Pain level now: 6 Location: Mid, Lower, Right Quality: Pain, Spasm Associated symptoms: No: Fever, Weakness, Numbness, Incontinent of urine, Unable to urinate, Hematuria, Incontinent of stool Improves with: Rest Worsened by: Movement Contributing factors: Lifting - Additional information Additional information: 31-year-old female states that she was lifting canned food when she felt a spasm in her back 2 weeks ago. Seen at the walk-in clinic and given Flexeril. States that she is still having pain. No numbness or tingling. No loss of bowel or bladder control. Denies any possibility of . Worse with movement, better with rest. She also states that occasionally she has pain on the plantar aspect of the right foot, worse in the morning, nothing seems to make it better. Review of Systems Constitutional: denies: Fever, Chills GI: denies: Vomiting : denies: Now [facility] PAST MEDICAL HISTORY - Past Medical History Past Medical History: Yes Cardiovascular: Hypertension Respiratory: None Neuro: None Endocrine/Autoimmune: None GI: GERD SOUND CONTROLLER: None : None Psych: Anxiety Musculoskeletal: None Derm: None - Past Surgical History Past Surgical History: Yes /SOUND CONTROLLER: section - Present Medications Home Medications: Ambulatory Orders Medication Instructions Recorded Confirmed Acetaminophen [Tylenol] 650 mg PO Q6H PRN #90 tablet 08/29/20 07/22/21 Ibuprofen [Motrin] 600 mg PO Q6H PRN #90 tab 08/29/20 07/22/21 Labetalol [Trandate] 100 mg PO BID #60 tablet 08/29/20 07/22/21 Meloxicam [Mobic] 15 mg PO DAILY PRN #20 tablet 07/22/21 Sertraline [Zoloft] 50 mg PO DAILY 07/22/21 07/22/21 methocarbamoL [Robaxin] 500 mg PO Q6H PRN #20 tablet 07/22/21 - Allergies Allergies/Adverse Reactions: Allergies Allergy/AdvReac Type Severity Reaction Status Date / Time No Known Drug Allergies Allergy Verified 07/22/21 12:10 - Social History Does the pt smoke?: No Smoking Status: Never smoker Does the pt have substance abuse?: Yes Substance Use and Type: Marijuana - Immunizations Immunizations are current?: Yes PD ED PE NORMAL - Vitals Vital signs reviewed: Yes - General General: Alert and oriented X 3, No acute distress - HEENT HEENT: PERRL, Moist mucous membranes - Neck Neck: Supple, no meningeal sign, No bony TTP - Cardiac Cardiac: RRR - Respiratory Respiratory: No respiratory distress, Clear bilaterally - Abdomen Abdomen: Soft, Non tender, Non distended - Back Back: No CVA TTP, No spinal TTP, Other (No midline tenderness to palpation or percussion. No step-off or deformity. Does have mild spasm right paraspinal, upper lumbar, lower thoracic. NVI) - Derm Derm: Warm and dry - Extremities Extremities: No edema, No calf tenderness / cord, Other (Right foot - Patient is tender near the calcaneus, pain is worse with dorsiflexion and extends across the plantar aspect of the foot. Neurovascular intact. Otherwise normal exam of the foot and ankle) - Neuro Neuro: Alert and oriented X 3, No motor deficit, No sensory deficit, Other (Normal bilateral lower extremity patellar and ankle jerk reflexes. Normal great toe extension bilaterally. no saddle anesthesia) - Psych Psych: Normal mood, Normal affect Results - Vitals Vitals: Vital Signs - 24 hr 07/22/21 07/22/21 12:10 16:25 Temperature 36.4 C L Heart Rate 91 73 Respiratory 18 16 Rate Blood Pressure 147/104 H 129/100 H O2 Saturation 100 100 Oxygen O2 Source Room air - Labs Labs: Laboratory Tests 07/22/21 15:45 Urine Color YELLOW Urine Clarity HAZY Urine pH 5.5 Ur Specific [place]beer >=1.030 H Urine Protein NEGATIVE Urine Glucose (UA) NEGATIVE Urine Ketones NEGATIVE Urine Occult Blood NEGATIVE Urine Nitrite NEGATIVE Urine Bilirubin NEGATIVE Urine Urobilinogen 0.2 (NORMAL) Ur Leukocyte Esterase SMALL H Urine RBC 0-5 Urine WBC >25 H Ur Squamous Epith Cells MANY Squamous H Urine Bacteria Moderate H Urine Mucus Few Strands Ur Microscopic Review INDICATED Urine Culture Comments NOT INDICATED Urine HCG, Qual NEGATIVE PD MEDICAL DECISION MAKING - ED course Complexity details: reviewed results, re-evaluated patient, considered differential, d/w patient ED course: Patient with what appears to be paraspinal spasm of the upper lumbar/lower thoracic spine. Likely myofascial strain. No indication for imaging. Neurovascularly intact. No cauda equina or epidural abscess. Patient also with what appears to be plantar fasciitis of the right foot. Recommend that she obtain new shoes and continue gentle stretching. Patient counseled regarding signs and symptoms for which I believe and urgent re-evaluation would be necessary. Patient with good understanding of and agreement to plan and is comfortable going home at this time This document was made in part using voice recognition software. While efforts are made to proofread this document, sound alike and grammatical errors may occ ur. Departure - Departure Disposition: Home, Self Care Clinical Impression: Back spasm, Plantar fasciitis Condition: Good Instructions: Plantar Fasciitis Tx, ED Low Back Pain Injury, ED Plantar Fasciitis Follow-Up: your,doctor in 1 week [Other] Prescriptions: Meloxicam [Mobic] 15 mg PO DAILY PRN #20 tablet PRN Reason: pain methocarbamoL [Robaxin] 500 mg PO Q6H PRN #20 tablet PRN Reason: muscle spasm Comments: Please follow-up with your doctor for further care. Return if you worsen. Do not drive or operate heavy machinery while taking the Robaxin. Continue gentle stretching at home. New shoes should help your plantar fasciitis at home. Your prescriptions were sent to [facility] in [place]. Discharge Date/Time: 07/22/21 16:26
[2021-07-22 15:52] LABS: BILIRUBIN,URINE NEGATIVE (NEGATIVE); GLUCOSE, URINE (UA) NEGATIVE (NEGATIVE); KETONES,URINE (UA) NEGATIVE (NEGATIVE); LEUKOCYTE ESTERASE, URINE SMALL (NEGATIVE); NITRITE,URINE NEGATIVE (NEGATIVE); OCCULT BLOOD,URINE NEGATIVE (NEGATIVE); PH,URINE 5.5 PH (5.0-7.5); PROTEIN,URINE NEGATIVE (NEGATIVE); UROBILINOGEN,URINE 0.2 (NORMAL) E.U./dL (NORMAL)
[2021-07-22 15:53] LABS: CLARITY,URINE HAZY (CLEAR)
[2021-07-22 15:54] LABS: HCG UR QUAL NEGATIVE
[2021-07-22 16:05] LABS: BACTERIA,URINE Moderate /HPF (None Seen); MUCUS,URINE Few Strands; RBC,URINE 0-5 /HPF (0-5); SQUAMOUS EPITHELIAL CELL,UR MANY Squamous (<= Few); WBC,URINE >25 /HPF (0-5)
[2021-07-22 16:26] VITALS: BP 129/100
== END 2021-07-22 16:26 | disposition home or self-care (01) ==
LOC: ED 11:59
DX: M62.830 Muscle spasm of back (principal); M72.2 Plantar fascial fibromatosis; I10 Essential (primary) hypertension
CPT/HCPCS: 81001; 81025; 99283; 99284; A9270; 81003; 87086

== ENCOUNTER 2021-10-07 08:00 | Outpatient (CLI) | payer MEDICAID ==
[2021-10-07 18:18] LABS: BASOPHILS % (AUTO) 0.3 %; EOSINOPHILS # (AUTO) 0.1 10^3/uL (0.0-0.7); HCT - HEMATOCRIT 39.9 % (37.0-47.0); HGB - HEMOGLOBIN 13.6 g/dL (12.0-16.0); LYMPHOCYTES # (AUTO) 1.7 10^3/uL (1.5-3.5); LYMPHOCYTES % (AUTO) 30.1 %; MEAN CORPUSCULAR HEMOGLOBIN 30.8 pg (27.0-31.0); MEAN CORPUSCULAR HGB CONC 34.1 g/dL (32.0-36.0); MEAN CORPUSCULAR VOLUME 90.3 fL (81.0-99.0); MEAN PLATELET VOLUME 11.3 fL (7.9-10.8); MONOCYTES # (AUTO) 0.3 10^3/uL (0.0-1.0); MONOCYTES % (AUTO) 4.7 %; NEUTROPHILS # (AUTO) 3.6 10^3/uL (1.5-6.6); NEUTROPHILS % (AUTO) 63.4 %; PLT - PLATELET COUNT 227 10^3/uL (130-450); RED BLOOD COUNT 4.42 10^6/uL (4.20-5.40); RED CELL DISTRIBUTION WIDTH 12.8 % (12.0-15.0); WHITE BLOOD COUNT 5.7 x10^3/uL (4.8-10.8)
[2021-10-07 18:42] LABS: THYROID STIMULATING HORMONE 1.3 uIU/mL (0.34-5.60)
[2021-10-07 19:12] LABS: ALBUMIN 4.5 g/dL (3.2-5.5); ALBUMIN/GLOBULIN RATIO 1.3 (1.0-2.2); BILIRUBIN,TOTAL 0.7 mg/dL (0.2-1.0); CALCIUM 9.5 mg/dL (8.5-10.3); CREATININE 0.7 mg/dL (0.4-1.0); POTASSIUM 4.3 mmol/L (3.5-5.0); TOTAL PROTEIN 7.9 g/dL (6.7-8.2)
== END 2021-10-07 23:59 | disposition home or self-care (01) ==
LOC: LAB.WCP 08:00
PROVIDERS: ATTEND Physician Assistant
DX: Z13.9 Encounter for screening, unspecified (principal)
CPT/HCPCS: 36415; 80053; 84443; 85025

== ENCOUNTER 2023-02-24 07:22 | Day surgery (SDC) | payer MEDICAID ==
[2023-02-24] MEDS ORDERED: LACTATED RINGERS 1,000 ML IV ONE ×2 (07:30→10:05)
[2023-02-24 07:37] LABS: HCG UR QUAL NEGATIVE
[2023-02-24] MEDS ORDERED: LIDOCAINE-MPF 1% 30 ML VIAL ONE (08:11)
--- NOTE | 2023-02-24 08:14 | ANESTHESIA ---
Pre-Anesthesia VS, & Labs - Diagnosis CIN3 - Procedure LEEP under anesthesia Vital Signs: Temp Pulse Resp BP Pulse Ox O2 Flow Rate 36.6 C 80 16 133/96 H 99 0 02/24/23 07:39 02/24/23 07:39 02/24/23 07:39 02/24/23 07:39 02/24/23 07:39 02/24/23 07:39 Height: 5 ft 3 in Weight (kg): 91 kg Body Mass Index: 35.5 BMI Classification: Obese - NPO >8 hours - Is Patient ?: No Home Medications and Allergies Sertraline [Zoloft] 50 mg PO DAILY 07/22/21 Allergies/Adverse Reactions: Allergies Allergy/AdvReac Type Severity Reaction Status Date / Time No Known Drug Allergies Allergy Verified 07/22/21 12:10 Anes History & Medical History - Anesthetic History Anesthesia Complications: reports: No previous complications - Medical History Cardiovascular: reports: Hypertension Pulmonary: reports: None Gastrointestinal: reports: GERD Urinary: reports: None Neuro: reports: None Musculoskeletal: reports: Chronic back pain Endocrine/Autoimmune: reports: None Blood Disorders: reports: Anemia Skin: reports: Psoriasis Smoking Status: Never smoker - Surgical History Gynecologic: reports: section Exam General: Alert, Oriented x3 Dental: WNL Mouth Opening: Greater than 4 Fingerbreadths Neck Mobility: Normal Mallampati classification: II Thyromental Distance: greater than 6 cm Respiratory: Lungs clear Cardiovascular: Regular rate, Normal S1, Normal S2 Plan Anesthesia Type: General Consent for Procedure(s) Verified and Reviewed: Yes Code Status: Attempt Resuscitation ASA classification: 2-Mild systemic disease Is this case an emergency?: No
[2023-02-24] MEDS ORDERED: fentaNYL 100 MCG/2 ML VIAL ONE (08:16)
[2023-02-24] MEDS ORDERED: MIDAZOLAM 2 MG/2 ML VIAL ONE (08:16)
[2023-02-24] MEDS ORDERED: LIDOCAINE-MPF 2% 5 ML VIAL ONE (08:17)
[2023-02-24] MEDS ORDERED: PROPOFOL 200 MG/20 ML VIAL IVP ONE (08:17)
[2023-02-24] MEDS ORDERED: DEXAMETHASONE 4 MG/ML VIAL ONE (09:05)
[2023-02-24] MEDS ORDERED: ONDANSETRON 4 MG/2 ML VIAL ONE (09:05)
[2023-02-24] MEDS ORDERED: ONDANSETRON 4 MG/2 ML VIAL IVP PRN (09:20)
[2023-02-24] MEDS ORDERED: MORPHINE 2 MG/ML CARPUJECT IVP PRN (09:20)
[2023-02-24] MEDS ORDERED: ATROPINE ABBOJECT 1 MG/10 ML SYRINGE IVP PRN (09:20)
[2023-02-24] MEDS ORDERED: HYDROmorphone 0.5 MG/0.5 ML SYRINGE IVP PRN (09:20)
[2023-02-24] MEDS ORDERED: NALOXONE 0.4 MG/ML VIAL IVP PRN (09:20)
[2023-02-24] MEDS ORDERED: METOCLOPRAMIDE 10 MG/2 ML VIAL IVP PRN (09:20)
[2023-02-24] MEDS ORDERED: ePHEDrine 50 MG/ML VIAL IVP PRN (09:20)
[2023-02-24] MEDS ORDERED: fentaNYL 100 MCG/2 ML VIAL IVP PRN (09:20)
[2023-02-24] MEDS ORDERED: LIDOCAINE 1% 50 ML MDV SUBQ ONE ×2 (09:25)
[2023-02-24] MEDS ORDERED: FERRIC SUBSULFATE 8 ML SOLUTION (FOR OR) TOP ONE (09:47)
[2023-02-24] MEDS ORDERED: KETOROLAC 30 MG/ML VIAL ONE (09:57)
[2023-02-24] MEDS ORDERED: LACTATED RINGERS 1,000 ML IV SCH (10:00)
[2023-02-24] MEDS ORDERED: traMADol 50 MG TABLET PO PRN (11:00)
[2023-02-24 12:06] VITALS: BP 132/89
--- NOTE | 2023-02-24 14:14 | ANESTHESIA POST OP EVALUATION ---
Anesthesia Post Eval - Post Anesthesia Eval Vitals: Last Vital Signs Temp 36.8 C 02/24/23 11:40 Pulse 68 02/24/23 11:40 Resp 17 02/24/23 11:40 BP 132/89 H 02/24/23 11:40 Pulse Ox 99 02/24/23 11:40 O2 Flow Rate 0 02/24/23 07:39 CV Function Including HR & BP: Stable Pain Control: Satisfactory Nausea & Vomiting: Negative Mental Status: Baseline Respiratory Status: Airway Patent Hydration Status: Satisfactory Anesthesia Complications: None
--- NOTE | 2023-02-24 17:37 | OPERATIVE REPORT ---
Operative Report - General Procedure Date: 02/24/23 Planned Procedure: LEEP Pre-Op Diagnosis: ELIE 3 Procedure Performed: LEEP Post Op Diagnosis: ELIE 3 - Procedure Note Primary Surgeon: Collette Haskins DO Anesthesia Provider: Amelia Jimenez CRNA Pathology: LEEP- portion of cervix Estimated Blood Loss (mL): 40 Urine Output (mL): 20 Indications: ELIE 3 Complications: None - Other Other Information/Narrative: Insulated speculum placed. Cervix visualized. Acetic acid applied. 2cm x 1cm loop electrode used to excise portion of cervix. LEEP electrode used to excise all of transformation zone with portion of endocervix. Specimen removed in one pass and circular specimen obtained. Subcentimeter superficial laceration of left vaginal wall created during excision. 2-0 silk suture figure of eight placed for hemostasis. Excision site cauterized with ball electrode. Hemostasis. Monsel's solution applied. Hemostasis at all sites. Speculum removed. Counts correct x2. Taken to PACU in stable condition.
== END 2023-02-24 07:23 | disposition home or self-care (01) ==
LOC: SDS 07:22
PROVIDERS: ATTEND Obstetrics & Gynecology
PROC: 0UBC7ZZ Excision of Cervix, Via Natural or Artificial Opening (ICD-10-PCS; principal; 2023-02-24 08:30)
DX: D06.9 Carcinoma in situ of cervix, unspecified (principal); E66.9 Obesity, unspecified; Z68.35 Body mass index [BMI] 35.0-35.9, adult; Z87.891 Personal history of nicotine dependence
CPT/HCPCS: 57522; 81025; J7120

== ENCOUNTER 2023-08-19 10:30 | Outpatient (CLI) | payer MEDICAID ==
[2023-08-20 09:48] LABS: BILIRUBIN,URINE NEGATIVE (NEGATIVE); GLUCOSE, URINE (UA) NEGATIVE (NEGATIVE); KETONES,URINE (UA) NEGATIVE (NEGATIVE); LEUKOCYTE ESTERASE, URINE SMALL (NEGATIVE); NITRITE,URINE NEGATIVE (NEGATIVE); OCCULT BLOOD,URINE NEGATIVE (NEGATIVE); PH,URINE 5.5 PH (5.0-7.5); PROTEIN,URINE NEGATIVE (NEGATIVE); UROBILINOGEN,URINE 0.2 (NORMAL) E.U./dL (NORMAL)
[2023-08-20 09:57] LABS: CLARITY,URINE HAZY (CLEAR)
[2023-08-20 10:01] LABS: AMORPHOUS SEDIMENT,UR Few /LPF; BACTERIA,URINE Few /HPF (None Seen); RBC,URINE None Seen /HPF (0-5); SQUAMOUS EPITHELIAL CELL,UR FEW Squamous (<= Few)
== END 2023-08-19 23:59 | disposition home or self-care (01) ==
LOC: LAB.WC 10:30
PROVIDERS: ATTEND Obstetrics & Gynecology
DX: Z34.90 Encounter for supervision of normal pregnancy, unspecified, unspecified trimester (principal)
CPT/HCPCS: 81001; 87086

== ENCOUNTER 2023-09-01 20:28 | Outpatient (CLI) | payer MEDICAID ==
--- NOTE | 2023-09-02 12:48 | Ultrasound Report ---
PROCEDURE: OB First Trimester w/TV INDICATIONS: + PREG TEST OUTSIDE/PRIOR DATING DATA: Last menstrual period (LMP): 07/06/2023. LMP-based estimated date of delivery (YUMIKO): 04/13/2024. First dating scan (date and location): 09/01/2023. Estimated date of delivery (YUMIKO) from first dating scan: 04/17/2024. TECHNIQUE: Real-time scanning was performed of the fetus and maternal pelvic organs, with image documentation. Endovaginal scanning was also performed to better visualize the fetus and maternal ovaries. COMPARISON: None. FINDINGS: Intrauterine gestational sac present. Embryo: Bonham-rump length measuring 1.11 cm, gestational age 7 weeks 2 days Heart rate: 153 bpm. Other: Small perigestational fluid collection measuring 2.9 x 2.2 x 0.9 cm. Measurement variability in dating: +/- 4 weeks by LMP, +/- 7 days by mean sac diameter (use before 6 weeks gestation if crown-rump length not able to be measured), +/- 5 days by crown-rump length (6-12 weeks gestation). Maternal organs: Ovaries appear within normal limits. Small left corpus luteum cyst. Right ovary ech ogenic focus measuring 0.7 cm. Retroverted uterus. Cervix is closed. Small nabothian cysts. IMPRESSION: 1. Sims living intrauterine at 7 weeks 2 days based on today's crown-rump length. 2. Small perigestational hemorrhage. Reviewed by: Mendoza Byers MD on 09/02/2023 12:47 PM PST Approved by: Mendoza Byers MD on 09/02/2023 12:47 PM PST Station ID: [id number]
== END 2023-09-01 20:29 | disposition home or self-care (01) ==
LOC: DI 20:28
PROVIDERS: ATTEND Nurse Practitioner
DX: O20.8 Other hemorrhage in early pregnancy (principal); Z3A.01 Less than 8 weeks gestation of pregnancy

== ENCOUNTER 2023-09-30 13:54 | Outpatient (CLI) | payer MEDICAID ==
[2023-09-30 14:35] LABS: BASOPHILS % (AUTO) 0.4 %; EOSINOPHILS # (AUTO) 0.1 10^3/uL (0.0-0.7); EOSINOPHILS % (AUTO) 0.7 %; HCT - HEMATOCRIT 35.6 % (37.0-47.0); HGB - HEMOGLOBIN 12.4 g/dL (12.0-16.0); LYMPHOCYTES # (AUTO) 1.5 10^3/uL (1.5-3.5); LYMPHOCYTES % (AUTO) 17.5 %; MEAN CORPUSCULAR HGB CONC 34.8 g/dL (32.0-36.0); MEAN PLATELET VOLUME 10.8 fL (7.9-10.8); MONOCYTES # (AUTO) 0.4 10^3/uL (0.0-1.0); MONOCYTES % (AUTO) 4.2 %; NEUTROPHILS # (AUTO) 6.6 10^3/uL (1.5-6.6); PLT - PLATELET COUNT 219 10^3/uL (130-450); RED CELL DISTRIBUTION WIDTH 12.6 % (12.0-15.0); WHITE BLOOD COUNT 8.5 x10^3/uL (4.8-10.8)
[2023-09-30 14:57] LABS: THYROID STIMULATING HORMONE 1.31 uIU/mL (0.34-5.60)
[2023-09-30 17:41] LABS: CREATININE,URINE 385.3 mg/dL; PROTEIN/CREATININE RATIO,URINE 0.1 (<=0.2)
[2023-09-30 20:19] LABS: ESTIMATED AVERAGE GLUCOSE 91 mg/dL (70-100); HEMOGLOBIN A1c% 4.8 % (4.27-6.07)
[2023-10-01 07:09] LABS: HBsAG SCREEN Negative (Negative); RPR Non Reactive (Non Reactive)
[2023-10-01 08:10] LABS: HCV AB Non Reactive (Non Reactive)
[2023-10-01 09:10] LABS: HIV SCREEN 4TH GENERATION Non Reactive (Non Reactive)
[2023-10-02 09:09] LABS: VARICELLA-ZOSTER AB IGG 529 index (Immune >165)
== END 2023-09-30 13:55 | disposition home or self-care (01) ==
LOC: LAB 13:54
PROVIDERS: ATTEND Obstetrics & Gynecology
DX: O16.9 Unspecified maternal hypertension, unspecified trimester (principal); Z11.3 Encounter for screening for infections with a predominantly sexual mode of transmission
CPT/HCPCS: 36415; 82570; 83036; 84156; 84443; 85025; 86592; 86762; 86787; 86803; 86850; 86900; 86901; 87340; 87389; 87491; 87591; 87661

== ENCOUNTER 2023-10-01 08:00 | Outpatient (CLI) | payer MEDICAID ==
[2023-10-01 12:40] LABS: CHLAMYDIA TRACHOMATIS DNA NEGATIVE (NEGATIVE); NEISSERIA GONORRHOEAE DNA NEGATIVE (NEGATIVE); TRICHOMONAS VAGINALIS DNA NEGATIVE (NEGATIVE)
== END 2023-10-01 23:59 | disposition home or self-care (01) ==
LOC: LAB.WC 08:00
PROVIDERS: ATTEND Obstetrics & Gynecology
DX: Z11.3 Encounter for screening for infections with a predominantly sexual mode of transmission (principal)
CPT/HCPCS: 87491; 87591; 87661

== ENCOUNTER 2023-11-11 09:47 | Outpatient (CLI) | payer MEDICAID ==
[2023-11-13 21:07] LABS: AFP MOM 1.27 (.); AFP VALUE 41.3 ng/mL (.); GEST. AGE ON COLLECTION DATE 17.4 weeks (.); GESTAT. AGE METHOD Ultrasound (.); INSULIN DEP DIABETES No (.); MATERNAL AGE AT EDD 32.1 yr (.); MULTIPLE GESTATION No (.); OPEN SPINA BIFIDA RISK 1 IN 5251 (.); RACE Caucasian (.); RESULTS Report (.); TEST RESULTS *Screen Negative* (.); WEIGHT 216 lbs (.)
== END 2023-11-11 09:48 | disposition home or self-care (01) ==
LOC: LAB.N 09:47
PROVIDERS: ATTEND Obstetrics & Gynecology
DX: Z36.0 Encounter for antenatal screening for chromosomal anomalies (principal); E66.9 Obesity, unspecified
CPT/HCPCS: 36415; 82105; 82950

== ENCOUNTER 2023-12-08 15:44 | Outpatient (CLI) | payer MEDICAID ==
--- NOTE | 2023-12-09 20:38 | Ultrasound Report ---
PROCEDURE: OB Anatomy Scan INDICATIONS: SUPERVISION OF HIGH RISK PREG OUTSIDE/PRIOR DATING DATA: Last menstrual period (LMP): 07/06/2023. LMP-based estimated date of delivery (YUMIKO): 04/13/2024. First dating scan (date and location): 09/01/2023. Estimated date of delivery (YUMIKO) from first dating scan: 04/17/2024. TECHNIQUE: Real-time scanning was performed of the fetus, with image documentation and biometric measurements. Endovaginal scanning: Not performed. COMPARISON: 09/01/2023 FINDINGS: General: A single living intrauterine gestation is present. Presentation: Vertex Placenta: Placental position is posterior, without previa. Amniotic fluid index: 18.4 cm, within normal limits for gestational age. heart rate: 148 beats per minute. Maternal cervical canal: 4.2 cm long; normal length is 2.5 cm or more. biometrics: Biparietal diameter: 5.38 cm, 22 weeks and 3 days (86th percentile) Head circumference: 19.9 cm, 22 weeks and 1 day (74th percentile) Abdominal circumference: 17.59 cm, 22 weeks and 3 days (80th percentile) Femur length: 3.76 cm, 22 weeks and 0 days (65th percentile) Estimated gestational age from initial scan: 21 weeks and 2 days Composite gestational age from present scan: 22 weeks and 0 days Estimated weight and percentile: 489 g which correlates with the 90th percentile for gestation al age Measurement variability in biometric dating: +/- 10 days from 12-20 weeks gestation, +/- 2 weeks from 20-30 weeks gestation, +/- 3 weeks at 30 weeks gestation or later. Anatomic survey: Neuro: Ventricles are normal at less than 10 mm. Cisterna magna is normal at 3-11 mm. Cerebellum i s normal in size and morphology. Nuchal skin fold: Normal at less than 6 mm between 14 and 20 weeks gestational age. Face: Nose and lips, facial profile are normal. Spine: No evidence for spina bifida. Heart: 4-chambered heart is present, with normal ventricular outflow tracts. Diaphragm: Diaphragm is intact. Stomach: Left-sided stomach is present. Kidneys: No hydronephrosis. Normal is less than 5 mm in 2nd trimester, less than 7 mm in 3rd trimester. Cord: 3 vessel cord has orthotopic insertion. Bladder: Normal in size. Extremities: All 4 extremities are visualized. IMPRESSION: Single living intrauterine gestation with estimated sonographic gestational age of approximately 22 w eeks and 0 days. Normal interval growth has occurred. Estimated weight of approximately 489 g which correlates with the 90th percentile for gestation al age. Normal anatomy screening survey. Reviewed by: Andrew Harris MD on 12/09/2023 8:37 PM PDT Approved by: Andrew Harris MD on 12/09/2023 8:37 PM PDT Station ID: [id number]
== END 2023-12-08 15:45 | disposition home or self-care (01) ==
LOC: DI 15:44
PROVIDERS: ATTEND Obstetrics & Gynecology
DX: O09.892 Supervision of other high risk pregnancies, second trimester (principal); Z3A.22 22 weeks gestation of pregnancy

== ENCOUNTER 2024-01-15 10:09 | Outpatient (CLI) | payer MEDICAID ==
[2024-01-15 12:27] LABS: HCT - HEMATOCRIT 33.3 % (37.0-47.0); HGB - HEMOGLOBIN 11.3 g/dL (12.0-16.0); MEAN CORPUSCULAR HEMOGLOBIN 31.5 pg (27.0-31.0); MEAN CORPUSCULAR HGB CONC 33.9 g/dL (32.0-36.0); MEAN CORPUSCULAR VOLUME 92.8 fL (81.0-99.0); MEAN PLATELET VOLUME 11.2 fL (7.9-10.8); RED BLOOD COUNT 3.59 10^6/uL (4.20-5.40); RED CELL DISTRIBUTION WIDTH 13.3 % (12.0-15.0)
[2024-01-15 13:33] LABS: ESTIMATED AVERAGE GLUCOSE 85 mg/dL (70-100); HEMOGLOBIN A1c% 4.6 % (4.27-6.07)
[2024-01-15 13:40] LABS: CREATININE,URINE 191.7 mg/dL; PROTEIN/CREATININE RATIO,URINE 0.2 (<=0.2)
== END 2024-01-15 10:10 | disposition home or self-care (01) ==
LOC: LAB.N 10:09
PROVIDERS: ATTEND Obstetrics & Gynecology
DX: O09.892 Supervision of other high risk pregnancies, second trimester (principal); O16.2 Unspecified maternal hypertension, second trimester
CPT/HCPCS: 36415; 82570; 82950; 83036; 84156; 85027

== ENCOUNTER 2024-02-03 12:40 | Outpatient (CLI) | payer MEDICAID ==
--- NOTE | 2024-02-03 15:49 | Ultrasound Report ---
PROCEDURE: OB Follow up INDICATIONS: HYPERTENSION OUTSIDE/PRIOR DATING DATA: Last menstrual period (LMP): 07/06/2023. LMP-based estimated date of delivery (YUMIKO): 04/13/2024. First dating scan (date and location): 09/01/2023. Estimated date of delivery (YUMIKO) from first dating scan: 04/17/2024. The below data below was generated using the ultrasound YUMIKO of 04/17/2024 TECHNIQUE: Real-time scanning was performed of the fetus, with image documentation and biometric measurements. COMPARISON: OB ultrasound 12/08/2023 FINDINGS: General: A single living intrauterine gestation is present. Presentation: Vertex Placenta: Placental position is posterior, without previa. Amniotic fluid index: 16.3 cm, within normal limits for gestational age. heart rate: 141 beats per minute. Maternal cervical canal: 4.3 cm long; normal length is 2.5 cm or more. biometrics: Biparietal diameter: 7.9 cm, 31 weeks 6 days 94th percentile Head circumference: 27.6 cm, 30 weeks 1 day 33rd percentile Abdominal circumference: 27.1 cm 31 weeks 2 days, 87th percentile Femur length: 5.9 cm, 30 weeks 5 days 70th percentile Estimated gestational age from initial scan: 29 weeks 4 days Composite gestational age from present scan: 31 weeks 0 days Estimated weight and percentile: 1684 g 86th percentile Measurement variability in biometric dating: +/- 10 days from 12-20 weeks gestation, +/- 2 weeks from 20-30 weeks gestation, +/- 3 weeks at 30 weeks gestation or more. Other: Not applicable. IMPRESSION: Single live intrauterine with ultrasound gestational age of 31 weeks 0 days. SUE is within normal limits. weight is at the 86th percentile Reviewed by: Margaux Elizabeth MD on 02/03/2024 3:47 PM PDT Approved by: Margaux Elizabeth MD on 02/03/2024 3:47 PM PDT Station ID: [id number]
== END 2024-02-03 12:41 | disposition home or self-care (01) ==
LOC: DI 12:40
PROVIDERS: ATTEND Obstetrics & Gynecology
DX: O16.3 Unspecified maternal hypertension, third trimester (principal); Z3A.31 31 weeks gestation of pregnancy

== ENCOUNTER 2024-02-27 11:49 | Outpatient (CLI) | payer MEDICAID ==
[2024-02-27 12:10] VITALS: BP 114/71
--- NOTE | 2024-02-27 13:01 | PROCEDURE REPORT ---
- HPI Diagnosis/Indication for NST: Pre- Hypertension Current EDU 03/18/24 Gestation 37 Weeks and 1 Days 3 Para 2 Vital Signs Temperature 97.9 F 02/27/24 11:54 Heart Rate 107 H 02/27/24 11:54 Respiratory Rate 02/27/24 11:54 Blood Pressure 114/71 02/27/24 11:54 Temperature 97.9 F 02/27/24 11:54 Heart Rate 107 H 02/27/24 11:54 Respiratory Rate 02/27/24 11:54 Blood Pressure 114/71 02/27/24 11:54 O2 Saturation If not protocol: Oxygen Flow, liters/minute - NST Procedure NST Procedure Start Date 02/27/24 Start Time 11:56 Stop Time 12:20 Vibroacoustic Stimulation Used No Patient States Movement Yes - Results and Plan Plan: Patient is a 34-year-old -0-0-2 at 37 weeks 2 days gestation here for NST. NST Performed 02/27/2024 NST Read 02/27/2024 FHT: 140 bpm baseline, moderate variability, accelerations present, no decelerations. Reactive NST [place]: Quiescent Diagnosis 37 weeks gestation Chronic hypertension Continue with scheduled OB care
== END 2024-02-27 12:21 | disposition home or self-care (01) ==
LOC: WFO 11:49 → FBP 11:51 → WFO 12:21
PROVIDERS: ATTEND Obstetrics & Gynecology
DX: O10.913 Unspecified pre-existing hypertension complicating pregnancy, third trimester (principal); Z3A.37 37 weeks gestation of pregnancy
CPT/HCPCS: 59025

== ENCOUNTER 2024-03-02 12:00 | Outpatient (CLI) | payer MEDICAID ==
--- NOTE | 2024-03-02 15:09 | Ultrasound Report ---
PROCEDURE: OB Follow up INDICATIONS: HYPERTENSION OUTSIDE/PRIOR DATING DATA: Last menstrual period (LMP): 07/06/2023. LMP-based estimated date of delivery (YUMIKO): 04/13/2024. First dating scan (date and location): 08/22/2023. Estimated date of delivery (YUMIKO) from first dating scan: 04/09/2024. The below data below was generated using the working YUMIKO of 04/16/2024 TECHNIQUE: Real-time scanning was performed of the fetus, with image documentation and biometric measurements. Endovaginal scanning: Not performed. COMPARISON: 02/03/2024 FINDINGS: General: A single living intrauterine gestation is present. Presentation: Vertex Placenta: Placental position is fundal, without previa. Amniotic fluid index: 18.8 cm, within normal limits for gestational age. Deepest pocket is 8.0 cm heart rate: 147 beats per minute. Maternal cervical canal: Closed and 4.8 cm long; normal length is 2.5 cm or more. biometrics: Biparietal diameter: 8.8 cm, 35 weeks 3 days Head circumference: 31.4 cm, 35 weeks 2 days Abdominal circumference: 32.4 cm, 36 weeks 2 days Femur length: 6.6 cm, 34 weeks 0 days Estimated gestational age from initial scan: 33 weeks 4 days Composite gestational age from present scan: 35 weeks 2 days Estimated weight and percentile: 2706 g, 93rd percentile Measurement variability in biometric dating: +/- 10 days from 12-20 weeks gestation, +/- 2 weeks from 20-30 weeks gestation, +/- 3 weeks at 30 weeks gestation or more. Other: Not applicable. IMPRESSION: Single living intrauterine with growth one week and 5 days ahead of the expected gestationa l age. Estimated weight at the 93rd percentile. Normal amniotic fluid index. Fundal placenta. Reviewed by: Livier Staton MD on 03/02/2024 3:08 PM PDT Approved by: Livier Staton MD on 03/02/2024 3:08 PM PDT Station ID: [id number]
== END 2024-03-02 12:01 | disposition home or self-care (01) ==
LOC: DI 12:00
PROVIDERS: ATTEND Obstetrics & Gynecology
DX: O16.3 Unspecified maternal hypertension, third trimester (principal); Z3A.35 35 weeks gestation of pregnancy

== ENCOUNTER 2024-03-05 11:47 | Outpatient (CLI) | payer MEDICAID ==
[2024-03-05 12:58] VITALS: BP 126/82
--- NOTE | 2024-03-10 09:56 | PROCEDURE REPORT ---
- HPI Diagnosis/Indication for NST: Pre- Hypertension Current EDU 04/17/24 Gestation 33 Weeks and 6 Days Vital Signs Temperature 98.2 F 03/05/24 12:08 Heart Rate 90 03/05/24 12:08 Blood Pressure 124/83 H 03/05/24 12:08 Temperature 98.4 F 03/05/24 12:44 Heart Rate 86 03/05/24 12:44 Respiratory Rate 20 03/05/24 12:44 Blood Pressure 126/82 H 03/05/24 12:44 O2 Saturation If not protocol: Oxygen Flow, liters/minute - NST Procedure NST Procedure Start Date 03/05/24 Start Time 11:58 Stop Time 12:41 Vibroacoustic Stimulation Used No - Results and Plan Findings/Impression: Category 1, reactive Plan: Follow up in clinic as scheduled.
== END 2024-03-05 12:47 | disposition home or self-care (01) ==
LOC: WFO 11:47 → FBP 11:51 → WFO 12:47
PROVIDERS: ATTEND Obstetrics & Gynecology
DX: O10.913 Unspecified pre-existing hypertension complicating pregnancy, third trimester (principal); Z3A.33 33 weeks gestation of pregnancy
CPT/HCPCS: 59025

== ENCOUNTER 2024-03-12 11:46 | Outpatient (CLI) | payer MEDICAID ==
[2024-03-12 12:59] VITALS: BP 119/87
--- NOTE | 2024-03-13 15:31 | PROCEDURE REPORT ---
- HPI Diagnosis/Indication for NST: Pre- Hypertension Current EDU 04/17/24 Gestation 34 Weeks and 6 Days Vital Signs Temperature 98.3 F 03/12/24 11:59 Heart Rate 77 03/12/24 11:59 Respiratory Rate 16 03/12/24 11:59 Blood Pressure 115/72 03/12/24 11:59 Temperature 98.4 F 03/12/24 12:30 Heart Rate 84 03/12/24 12:30 Respiratory Rate 16 03/12/24 11:59 Blood Pressure 119/87 H 03/12/24 12:30 O2 Saturation If not protocol: Oxygen Flow, liters/minute - NST Procedure NST Procedure Start Date 03/12/24 Start Time 11:56 Stop Time 12:29 Vibroacoustic Stimulation Used No Patient States Movement Yes - Results and Plan Findings/Impression: Reactive for of 32 weeks gestation or more. NST tracing contains at least two heart rate accelerations that are at least 15 beats per minute above the baseline rate and lasting at least 15 seconds from onset to return to baseline within a twenty minute period. Plan: care as scheduled
== END 2024-03-12 12:30 | disposition home or self-care (01) ==
LOC: WFO 11:46 → FBP 11:50 → WFO 12:30
PROVIDERS: ATTEND Obstetrics & Gynecology
DX: O10.913 Unspecified pre-existing hypertension complicating pregnancy, third trimester (principal); Z3A.34 34 weeks gestation of pregnancy
CPT/HCPCS: 59025

== ENCOUNTER 2024-03-19 11:50 | Outpatient (CLI) | payer MEDICAID ==
[2024-03-19 12:15] VITALS: BP 121/86
--- NOTE | 2024-03-19 13:22 | PROCEDURE REPORT ---
- HPI Diagnosis/Indication for NST: Pre- Hypertension Current EDU 04/17/24 Gestation 35 Weeks and 6 Days 3 Para 2 Vital Signs Temperature 98.4 F 03/19/24 12:05 Heart Rate 99 03/19/24 12:05 Respiratory Rate 16 03/19/24 12:05 Blood Pressure 121/86 H 03/19/24 12:05 Temperature 98.4 F 03/19/24 12:05 Heart Rate 99 03/19/24 12:05 Respiratory Rate 16 03/19/24 12:05 Blood Pressure 121/86 H 03/19/24 12:05 O2 Saturation If not protocol: Oxygen Flow, liters/minute - NST Procedure NST Procedure Start Date 03/19/24 Start Time 12:05 Stop Time 11:57 Vibroacoustic Stimulation Used No Patient States Movement Yes - Results and Plan Findings/Impression: Patient is a 34-year-old -0-0-2 at 35 weeks 6 days gestation here for NST. NST Performed 03/19/2024 NST Read 03/19/2024 FHT: 130 bpm baseline, moderate variability, accelerations present, no decelerations. Reactive NST [place]: Quiescent Diagnosis 35 weeks gestation Chronic hypertension Continue with scheduled OB care
== END 2024-03-19 12:58 | disposition home or self-care (01) ==
LOC: WFO 11:50 → FBP 12:00 → WFO 12:58
PROVIDERS: ATTEND Obstetrics & Gynecology
DX: O10.913 Unspecified pre-existing hypertension complicating pregnancy, third trimester (principal); Z3A.35 35 weeks gestation of pregnancy
CPT/HCPCS: 59025

== ENCOUNTER 2024-03-30 11:47 | Outpatient (CLI) | payer MEDICAID ==
--- NOTE | 2024-03-30 18:15 | Ultrasound Report ---
PROCEDURE: OB Follow up INDICATIONS: HYPERTENSION OUTSIDE/PRIOR DATING DATA: Last menstrual period (LMP): 07/06/2023. LMP-based estimated date of delivery (YUMIKO): 04/13/2024. First dating scan (date and location): -. Estimated date of delivery (YUMIKO) from first dating scan: 04/17/2024. The below data below was generated using the clinical YUMIKO of 04/16/2024 TECHNIQUE: Real-time scanning was performed of the fetus, with image documentation and biometric measurements. Endovaginal scanning: Not performed. COMPARISON: OB ultrasound 03/02/2024 FINDINGS: General: A single living intrauterine gestation is present. Presentation: Vertex Placenta: Placental position is fundal, without previa. Amniotic fluid index: 11 cm, within normal limits for gestational age. heart rate: 132 beats per minute. Maternal cervical canal: 4.8 cm long; normal length is 2.5 cm or more. biometrics: Biparietal diameter: 9.2 cm 37 weeks 3 days 65th percentile Head circumference: 33.2 cm 37 weeks 6 days 32nd percentile Abdominal circumference: 35.8 cm 29 weeks 5 days 98th percentile Femur length: 7.2 cm 36 weeks 6 days 34th percentile Estimated gestational age from initial scan: 37 weeks 4 days Composite gestational age from present scan: 38 weeks 0 days Estimated weight and percentile: 3531 g 83rd percentile Measurement variability in biometric dating: +/- 10 days from 12-20 weeks gestation, +/- 2 weeks from 20-30 weeks gestation, +/- 3 weeks at 30 weeks gestation or more. Other: Not applicable. IMPRESSION: Single live intrauterine with gestational age today of 38 weeks 0 days. Estimated weight is at the 3rd percentile, noting 98th percentile normal circumference. Reviewed by: Margaux Elizabeth MD on 03/30/2024 6:14 PM PDT Approved by: Margaux Elizabeth MD on 03/30/2024 6:14 PM PDT Station ID: [id number]
== END 2024-03-30 11:48 | disposition home or self-care (01) ==
LOC: DI 11:47
PROVIDERS: ATTEND Obstetrics & Gynecology
DX: O16.3 Unspecified maternal hypertension, third trimester (principal); Z3A.38 38 weeks gestation of pregnancy

== ENCOUNTER 2024-04-07 05:20 | Inpatient (IN) | payer MEDICAID ==
[2024-04-07] MEDS ORDERED: ePHEDrine 50 MG/ML VIAL IVP ONE (05:46)
[2024-04-07] MEDS ORDERED: WATER FOR INJECTION,STERILE 10 ML MC ONE (05:46)
[2024-04-07] MEDS ORDERED: PHENYLEPHRINE HCL 0.5 MG/5 ML AMPULE ONE (05:46)
[2024-04-07] MEDS ORDERED: CITRIC ACID/SODIUM CITRATE 15 ML UDC PO ONE (05:54)
[2024-04-07 06:02] LABS: BASOPHILS % (AUTO) 0.3 %; EOSINOPHILS # (AUTO) 0.1 10^3/uL (0.0-0.7); EOSINOPHILS % (AUTO) 0.7 %; HCT - HEMATOCRIT 35.5 % (37.0-47.0); LYMPHOCYTES # (AUTO) 1.7 10^3/uL (1.5-3.5); LYMPHOCYTES % (AUTO) 23.6 %; MEAN CORPUSCULAR HEMOGLOBIN 30.9 pg (27.0-31.0); MEAN CORPUSCULAR HGB CONC 33.8 g/dL (32.0-36.0); MEAN CORPUSCULAR VOLUME 91.5 fL (81.0-99.0); MEAN PLATELET VOLUME 11.8 fL (7.9-10.8); MONOCYTES # (AUTO) 0.4 10^3/uL (0.0-1.0); MONOCYTES % (AUTO) 5.4 %; PLT - PLATELET COUNT 164 10^3/uL (130-450); RED BLOOD COUNT 3.88 10^6/uL (4.20-5.40); RED CELL DISTRIBUTION WIDTH 13.3 % (12.0-15.0); WHITE BLOOD COUNT 7.3 x10^3/uL (4.8-10.8)
--- NOTE | 2024-04-07 06:35 | ANESTHESIA ---
Pre-Anesthesia VS, & Labs - Diagnosis Labor - Procedure Repeat C Section Vital Signs: Temp Pulse Resp BP Pulse Ox O2 Flow Rate 36.7 C 94 16 134/97 H 99 04/07/24 06:03 04/07/24 06:03 04/07/24 06:03 04/07/24 06:03 04/07/24 05:27 Height: 5 ft 3 in Weight (kg): 104.961 kg Body Mass Index: 41.0 BMI Classification: Morbidly Obese - Is Patient ?: Yes - Lab Results Current Lab Results: Laboratory Tests 04/07/24 05:43: WBC 7.3, RBC 3.88 L, Hgb 12.0, Hct 35.5 L, MCV 91.5, MCH 30.9, MCHC 33.8, RDW 13.3, Plt Count 164, MPV 11.8 H, Neut # (Auto) 5.0, Lymph # (Auto) 1.7, [place] # (Auto) 0.4, Eos # (Auto) 0.1, Baso # (Auto) 0.0, Absolute Nucleated RBC 0.00, Nucleated RBC % 0.0 Fish Bones: 04/07/24 05:43 Home Medications and Allergies Home Medications: Ambulatory Orders Aspirin [Vazalore] 81 mg PO DAILY 04/06/24 Labetalol [Trandate] 200 mg PO BID 04/07/24 Active Medications Lactated Ringer's (Lr) 1,000 mls @ 125 mls/hr IV .Q8H SHARMILA Sertraline [Zoloft] 50 mg PO DAILY 07/22/21 Aspirin [Vazalore] 81 mg PO DAILY 04/06/24 Labetalol [Trandate] 200 mg PO BID 04/07/24 Allergies/Adverse Reactions: Allergies Allergy/AdvReac Type Severity Reaction Status Date / Time No Known Drug Allergies Allergy Verified 07/22/21 12:10 Anes History & Medical History - Medical History Cardiovascular: reports: Hypertension Pulmonary: reports: None Gastrointestinal: reports: GERD Urinary: reports: None Neuro: reports: None Musculoskeletal: reports: Chronic back pain Endocrine/Autoimmune: reports: None Blood Disorders: reports: Anemia Skin: reports: Psoriasis Smoking Status: Former smoker - Surgical History Gynecologic: reports: section Exam General: Alert, Oriented x3, Cooperative Dental: WNL Mouth Openin Fingerbreadth Mallampati classification: II Thyromental Distance: 4-6 cm (Acid Reflux treated with Famotidine) Respiratory: Other (Vaping prior to ) Plan Anesthesia Type: Spinal, Transverse Abdominis Plane (TAP) Block Consent for Procedure(s) Verified and Reviewed: Yes Code Status: Attempt Resuscitation ASA classification: 3-Severe systemic disease Is this case an emergency?: No
[2024-04-07] MEDS ORDERED: OXYTOCIN/SODIUM CHLORIDE 500 ML IV ONE (07:01)
[2024-04-07] MEDS ORDERED: OXYTOCIN 10 UNIT/ML VIAL ONE (07:05)
[2024-04-07] MEDS ORDERED: SODIUM CHLORIDE 0.9% 10 ML VIAL IVP ONE (07:05)
[2024-04-07] MEDS: LACTATED RINGERS 1,000 ML IV SCH (07:24)
--- NOTE | 2024-04-07 07:33 | HISTORY & PHYSICAL EXAMINATION ---
Admit History - : 3 Parity: 2 Risk/History: positive: Previous , induced HTN, Other (obesity) Smoking Status: Former smoker - Mother's Labs Mother's RH: positive: Positive GBS: positive: Group B Strep Positive Rubella Status: positive: Immune - Other Maternal History Other Maternal History: HPI: 34-year-old -0-0-2 at 38 weeks 4 days gestation here for repeat section. She has good movement. Denies loss of fluid. No RAMIREZ/BV or RUQP. No vaginal bleeding. Denies nausea and vomiting. Denies urinary urgency or dysuria. All other symptoms reviewed and were negative except per HPI. Course LMP: 07/06/2023 YUMIKO by LMP: 04/13/2024 recaluated by wheel 04/11/24 09/01/2023 / 7+2 / NOT C/W dates (more than 5 days at less than 8 6/7 days) Final YUMIKO: 04/17/2024 (ultrasound dating) Canelo daugherty, has 3 kids, this is their first together. first 2 have same dad, not involved. he works at [employer]. Bernadette is home. His kids come over on weekend. neither are from their other partners. working on this. Problems: Chronic htn. labetolol 100 mg bid pre-. up to 200 bid 09/30/23. ASA 81mg daily. - growth US scheduled for 02/02 baseline labs done 09/30/23 NST Obesity 1 hour GCT at 137, repeat at 28 weeks 126 prior c section x 2, plan repeat with BTL. Sign consents 3rd trimester - [facility] consent signed 01/19 Mood disorder - Doing better on sertraline Pre- Weight:219.2 BMI: 38.97 Blood type: O+ Antibody: negative CBC: H/H 12.4/35.6 plt 219 RUB:NON IMMUNE VZV:IMMUNE HBsAg: NEGATIVE HepC: NR RPR/AB-EIA: NR HIV: NR PAP:02/19/23 - abnormal - LEEP - 03/13, ELIE 3 negative margins. repeat pap pp GC/CT: NEGATIVE HSV:Type 1 Genetic testing: [id number]- NEGATIVE AFP-negative Covid:virus x2 Flu:2022 FAS: 12/08/23 Placenta:posterior w/o previa Cord: 3VC SUE:18.4 EFW: 489g 90th%ile Ealry 50gm OGCT: 137 2nd Trimester OGCT: 01/14 126 TDAP: 01/19 Breast Pump: 01/19 3rd trimester HGB 11.3; HCT 33.3 PLT 185 GBS: POSITIVE (03/25/2024) Delivery plan: repeat c section with sterilization. still sure of this decision 02/16. PMH Reflux Panic attacks Costochondritis Neck spasms Chronic hypertension PSH x 2 LEEP: 2022 OB History [G P ] SH Former smoker. No current tobacco, quit, drugs New FOB, both have kids from previous relationships. Family History Mother: Thyroid disorder Father: Heart disease, hypertension, cardiomegaly Sister: Anxiety, panic attacks Paternal grandmother: Breast cancer Maternal grandmother: Lung cancer Maternal grandfather, stroke Aunt: colon cancer Allergies No known drug allergies Medications Docusate MiraLAX Pepcid Tums Sertraline 50 mg daily Labetalol 200 mg twice a day Low-dose aspirin Physical exam: General: Alert, oriented, no acute distress Head: Normal cephalic atraumatic Eyes: PERRLA, extraocular motions intact. Respiratory: Normal rate of respiration. No accessory muscle use, normal respiratory effort. Cardiovascular: Regular rate and rhythm Abdomen: Gravid, nontender, nondistended Extremities: Normal range of motion Neuro: Oriented x3. Normal movements Psych: Appropriate mood and affect. Normal judgment and insight FHT: 120 beats per baseline, moderate variability, accelerations present, no decelerations. [place]: Quiescent Assessment and plan 34-year-old -0-0-2 at 38 weeks 4 days gestation here for repeat section 1. Chronic hypertension controlled on medications -Will continue home antihypertensives and titrate as needed . 2. 38 weeks gestation 3. Previous low-transverse section x 2 - section was recommended. Risks, benefits and alternatives were discussed including but not limited to infection, bleeding that may require blood products or hysterectomy for life saving measures, injury to surrounding organs including but not limited to bowel, bladder, ureters, tubes and ovaries and/or the baby. Should injury occur it could require longer/additional surgery to repair. The patient stated understanding and desired to proceed. All questions were answered posed by patient. -2 g cefazolin preoperatively. 4. Anxiety -Continue home sertraline 5. Obesity - HPI Current EDU 04/17/24 Gestation 38 Weeks and 4 Days 3 Para 2 Vital Signs Temperature 98.1 F 04/07/24 05:27 Heart Rate 94 04/07/24 05:27 Respiratory Rate 16 04/07/24 05:27 Blood Pressure 134/97 H 04/07/24 05:27 O2 Saturation 99 04/07/24 05:27 Temperature 98.1 F 04/07/24 06:03 Heart Rate 94 04/07/24 06:03 Respiratory Rate 16 04/07/24 06:03 Blood Pressure 134/97 H 04/07/24 06:03 O2 Saturation 99 04/07/24 05:27 If not protocol: Oxygen Flow, liters/minute - NST Procedure NST Procedure Start Date 04/07/24 Start Time 05:55 Stop Time 06:15 Vibroacoustic Stimulation Used No Patient States Movement Yes Meds/Allgy - Home Medications Home Medications: Ambulatory Orders Medication Instructions Recorded Confirmed Acetaminophen [Tylenol] 650 mg PO Q6H PRN #90 tablet 08/29/20 04/06/24 Sertraline [Zoloft] 50 mg PO DAILY 07/22/21 04/06/24 Aspirin [Vazalore] 81 mg PO DAILY 04/06/24 04/06/24 Labetalol [Trandate] 200 mg PO BID 04/07/24 - Allergies Allergies/Adverse Reactions: Allergies Allergy/AdvReac Type Severity Reaction Status Date / Time No Known Drug Allergies Allergy Verified 07/22/21 12:10 Physical - Abdominal Exam Vital Signs: Temp Pulse Resp BP Pulse Ox O2 Flow Rate 98.1 F 94 16 134/97 H 99 04/07/24 06:03 04/07/24 06:03 04/07/24 06:03 04/07/24 06:03 04/07/24 05:27 Plan for Labor - Plan For Labor I expect patient to be DC'd or transferred within 96 hours.: Yes
[2024-04-07] MEDS: ceFAZolin (2G) 2 GM in SODIUM CHLORIDE 0.9% MINIBAG 100 ML IV ONE (07:52)
[2024-04-07] MEDS ORDERED: CARBOPROST TROMETHAMINE 250 MCG/ML VIAL IM ONE (08:17)
[2024-04-07] MEDS ORDERED: ONDANSETRON 4 MG/2 ML VIAL ONE ×2 (08:17→08:54)
[2024-04-07] MEDS ORDERED: miSOPROStoL 200 MCG TABLET ONE (08:17)
[2024-04-07] MEDS ORDERED: HYDROmorphone 0.5 MG/0.5 ML SYRINGE IVP PRN (08:41)
[2024-04-07] MEDS ORDERED: ATROPINE ABBOJECT 1 MG/10 ML SYRINGE IVP PRN (08:41)
[2024-04-07] MEDS ORDERED: ONDANSETRON 4 MG/2 ML VIAL IVP PRN ×2 (08:41→09:56)
[2024-04-07] MEDS ORDERED: NALOXONE 0.4 MG/ML VIAL IVP PRN ×2 (08:41→09:56)
[2024-04-07] MEDS ORDERED: METOCLOPRAMIDE 10 MG/2 ML VIAL IVP PRN (08:41)
[2024-04-07] MEDS ORDERED: MORPHINE 2 MG/ML CARPUJECT IVP PRN (08:41)
[2024-04-07] MEDS ORDERED: ePHEDrine 50 MG/ML VIAL IVP PRN (08:41)
[2024-04-07] MEDS ORDERED: SERTRALINE 50 MG TABLET PO SCH (09:00)
[2024-04-07] MEDS ORDERED: LACTATED RINGERS 1,000 ML IV SCH (09:00)
[2024-04-07] MEDS ORDERED: LABETALOL 100 MG TABLET PO SCH (09:00)
[2024-04-07] MEDS ORDERED: ROPIVACAINE 0.5% PF 20 ML VIAL ONE ×2 (09:03→09:09)
[2024-04-07] MEDS ORDERED: DEXAMETHASONE 4 MG/ML VIAL ONE (09:12)
[2024-04-07] MEDS: LACTATED RINGERS 1,000 ML IV ONE (09:46)
--- NOTE | 2024-04-07 09:51 | OPERATIVE REPORT ---
Operative Report - General Admit Date: 04/07/24 - Other Other Information/Narrative: DATE OF PROCEDURE: 04/07/24 Surgeon: Nancy Vidal MD Industrial Roofer: Gamaliel Jeffries MD (Dr. Jeffries was necessary as an ophthalmic assistant for the entire procedure for adequate retraction and visualization, to shorten operative time, to assist with delivery of the infant, and to lower the risk of surgical injury). Pre-Op Diagnosis: History of delivery x 2, desires permanent sterilization, preexisting hypertension (chronic HTN) Post-Op Diagnosis: Same Procedures: Repeat delivery with bilateral salpingectomy Findings: Clear amniotic fluid. Uterus with small 1-2cm subserosal fibroid at the fundus. Normal appearing ovaries. Left tube partially adherent to left ovary. A 2-3cm segment of the mid portion of the left tube adherent to the left ovary was left in place. Specimens: bilateral fallopian tubes sent together (right fallopian tube, left fallopian tube sent in two segments). Anesthesia Technique: Spinal Estimated Blood Loss (mls): 600cc Blood Replacement (mls): none Fluid Replacement (mls): 1200cc Drains: bansal catheter drained 200cc Complications: none Condition: stable Procedure in Detail: The patient was taken to the operating room where spinal anesthesia was placed. Bansal catheter was placed. She was prepared and draped in the normal sterile fashion in the dorsal supine position with a leftward tilt. 2g Ancef was given for prophylaxis. A pfannenstiel skin incision was made with the scalpel and carried down through the subcutaneous tissue in the midline. The remainder of the subcutaneous tissue was then with the knife and bovie. The fascia was incised in the midline and the incision was extended sharply with Mayos. The superior aspect of the fascial incision was grasped with two Allen clamps, elevated, and the unde rlying rectus muscles dissected off both bluntly and with the aid of the Mayos. Attention was turned to the inferior aspect of the fascial incision, which in a similar fashion, was grasped with two Allen clamps, elevated, and the underlying rectus muscles dissected off bluntly. The rectus muscles were in the midline, and the underlying peritoneum identified and entered bluntly. The peritoneal incision was extended bluntly and then further on the left side with the bovie and metzenbaum scissors. The bladder blade was inserted, the vesicouterine peritoneum was identified, grasped with pickups and entered sharply with the Metzenbaum scissors. This incision was extended laterally with Metzenbaum scissors, and the bladder flap created digitally. The bladder blade was reinserted. The lower uterine segment was incised in a transverse fashion with the scalpel. The uterine incision was extended bluntly. The bladder blade was removed and the infants head was brought to the hysterotomy. Fundal pressure applied and the infant delivered atraumatically. The cord was clamped and cut after 60 sec and the was handed off to the waiting provider. The placenta was removed with gentle uterine massage and cord traction. The uterus was exteriorized and cleared of all clots and debris with moist laparotomy sponges. The uterine incision was repaired with 0 Vicryl in a runn ing, locked fashion. Hemostasis of the hysterotomy noted. The right fallopian tube was removed using the ligasure starting at the fimbriated end. The left fallopian tube was removed in a similiar fashion, leaving a 2-3cm mid portion of the tube which was adherent to the ovary and in close proximity to large vessels. The posterior cul-de-sac was cleared of all clots and debris with laparotomy s ponges, and the uterus was returned to the abdomen. The gutters were cleared of all clots. Hemostasis of the hysterotomy and adnexal regions was noted. The rectus muscles were carefully examined and electrocautery was used to achieve hemostasis. The fascia was reapproximated with 0 PDS in a running fashion. The subcutaneous tissues was irrigated. The subcutaneous tissue was reapproximated with 2-0 Vicryl in 2 layers, and the skin was closed with 4-0 monocryl. The patient tolerated the procedure well. Sponge, lap, needle, and instrument counts were correct at the end of the procedure. The patient was taken to the recovery room in stable. Nancy Vidal MD
[2024-04-07] MEDS ORDERED: hydrALAZINE INJ 20 MG/ML VIAL IVP PRN ×2 (09:56)
[2024-04-07] MEDS ORDERED: diphenhydrAMINE 25 MG CAPSULE PO PRN (09:56)
[2024-04-07] MEDS ORDERED: LABETALOL 20 MG/4 ML SYRINGE IVP PRN ×3 (09:56)
[2024-04-07] MEDS ORDERED: ONDANSETRON ODT 4 MG TABLET TL PRN (09:56)
[2024-04-07] MEDS ORDERED: NIFEdipine 10 MG CAPSULE PO PRN (09:56)
[2024-04-07] MEDS ORDERED: OXYTOCIN/SODIUM CHLORIDE 500 ML IV PRN (09:56)
[2024-04-07] MEDS ORDERED: CALCIUM CARBONATE CHEW 500 MG TABLET PO PRN (09:56)
[2024-04-07] MEDS: fentaNYL 100 MCG/2 ML VIAL IVP PRN (10:05)
[2024-04-07 10:34] LABS: ALBUMIN 3.7 g/dL (3.2-5.5); ALBUMIN/GLOBULIN RATIO 1.4 (1.0-2.2); BILIRUBIN,TOTAL 0.4 mg/dL (0.2-1.0); CALCIUM 9.5 mg/dL (8.5-10.3); CREATININE 0.7 mg/dL (0.6-1.3); TOTAL PROTEIN 6.4 g/dL (6.4-8.9)
--- NOTE | 2024-04-07 10:38 | PHARMACY PROGRESS NOTE ---
- Best Possible Medication History Admit Date and Time: 04/07/24 0520 Processed by: Nursing As the person ultimately responsible for medication therapy, providers are able to order a medication from an existing home medication list in [facility] via the "Reconcile Routine" prior to Confirmation of that medication by director of academic support. Such practice is discouraged except when the physician, in their clinical judgment, deems that a medical need exists for a medication without regard to previous use.
[2024-04-07] MEDS: KETOROLAC 30 MG/ML VIAL IVP SCH (10:40)
[2024-04-07] MEDS: LABETALOL 100 MG TABLET PO SCH (12:39)
[2024-04-07] MEDS: ACETAMINOPHEN 500 MG TABLET PO SCH (12:40)
--- NOTE | 2024-04-07 13:21 | ANESTHESIA POST OP EVALUATION ---
Anesthesia Post Eval - Post Anesthesia Eval Vitals: Last Vital Signs Temp 36.9 C 04/07/24 10:15 Pulse 76 04/07/24 10:25 Resp 18 04/07/24 10:25 BP 140/100 H 04/07/24 10:25 Pulse Ox 100 04/07/24 10:25 O2 Flow Rate
[2024-04-07] MEDS: oxyCODONE 5 MG TABLET PO PRN (16:28)
[2024-04-07] MEDS: SENNA 8.6 MG TABLET PO SCH (20:34)
[2024-04-08 05:36] LABS: HCT - HEMATOCRIT 29.3 % (37.0-47.0); HGB - HEMOGLOBIN 9.9 g/dL (12.0-16.0); MEAN CORPUSCULAR HEMOGLOBIN 31.4 pg (27.0-31.0); MEAN CORPUSCULAR HGB CONC 33.8 g/dL (32.0-36.0); MEAN PLATELET VOLUME 11.7 fL (7.9-10.8); RED BLOOD COUNT 3.15 10^6/uL (4.20-5.40); RED CELL DISTRIBUTION WIDTH 13.5 % (12.0-15.0); WHITE BLOOD COUNT 10.2 x10^3/uL (4.8-10.8)
[2024-04-08] MEDS: IBUPROFEN 600 MG TABLET PO SCH (05:43)
[2024-04-08] MEDS: SIMETHICONE CHEW 80 MG TABLET PO PRN (09:13)
[2024-04-08] MEDS ORDERED: IBUPROFEN 600 MG TABLET PO SCH (10:00)
--- NOTE | 2024-04-08 11:44 | PROVIDER PROGRESS NOTE ---
Subjective - Prog Note Date Prog Note Date: 04/08/24 Prog Note Time: 11:42 - Subjective Subjective: Bernadette reports that pain overall well-managed with current regimen. Ruiz was removed last night and she has been up and ambulating around the room. She is urinating without difficulty. She took a shower and removed the bandage. Reports bleeding is minimal. She is . She denies RAMIREZ, vision changes, CP, SOB. Tolerating regular diet. She is passing flatus. Objective - Vital Signs/Intake & Output Reviewed Vital Signs: Yes Vital Signs: Vital Signs x48h Temp Pulse Resp BP Pulse Ox 04/08/24 09:00 98.4 F 85 18 135/75 H 98 Intake & Output: Intake & Output 04/05/24 04/06/24 04/07/24 04/08/24 23:59 23:59 23:59 23:59 Intake Total 1000 900 Output Total 680 880 Balance 320 20 - Objective Comments/Other: Gen: NAD, sitting up at side of bed. Chest: non labored respirations Abd: soft, appropriately TTP, fundus firm, non-distended. Incision: intact with steri strips in place, no erythema or drainage Ext: trace LE edema, no evidence of DVT - Lab Results Fish Bones: 04/08/24 05:08 04/07/24 05:43 Other Labs: Lab Results x24hrs 04/08/24 Range/Units 05:08 WBC 10.2 (4.8-10.8) x10^3/uL RBC 3.15 L (4.20-5.40) 10^6/uL Hgb 9.9 L (12.0-16.0) g/dL Hct 29.3 L (37.0-47.0) % MCV 93.0 (81.0-99.0) fL MCH 31.4 H (27.0-31.0) pg MCHC 33.8 (32.0-36.0) g/dL RDW 13.5 (12.0-15.0) % Plt Count 140 (130-450) 10^3/uL MPV 11.7 H (7.9-10.8) fL Assessment/Plan - Problem List (1) S/P section Impression: Overall doing well. Continue routine /postoperative care. Discussed possible discharge home tomorrow. (2) Pre-existing hypertension affecting Impression: BPs well controlled on labetalol 200mg BID, will continue. (3) Acute blood loss anemia Impression: Asymptomatic. Fe supplementation on discharge. (4) Mood disorder Impression: Doing well, continue home sertraline. Ordered for today.
[2024-04-08] MEDS: SERTRALINE 50 MG TABLET PO SCH (14:01)
[2024-04-08] MEDS: ACETAMINOPHEN 500 MG TABLET PO ONE (21:07)
[2024-04-09 01:09] VITALS: O2SAT 100
[2024-04-09 09:14] VITALS: BP 134/85
--- NOTE | 2024-04-09 11:03 | DISCHARGE SUMMARY ---
Discharge Summary Admit Date: 04/07/24 Discharge Date: 04/09/24 Discharging Provider: Nancy Vidal MD Discharge Disposition: 01 Home, Self Care - DIAGNOSES Admission Diagnoses: History of delivery x 2 Desires permanent sterilization Preexisting hypertension Rubella nonimmune Mood disorder Discharge Diagnoses with Status of Each Condition: Same Acute blood loss anemia - HOSPITAL COURSE Hospital Course: Mariely presented for repeat delivery with bilateral salpingectomy. Procedure was uncomplicated with an EBL 600cc. Her blood pressures were well controlled on labetalol 200mg BID. She is discharged home meeting postoperative/ milestones. Today, Bernadette is feeling well. Reports pain is well controlled with current medications. She is ambulating and urine without difficulty. Passing flatus and has had a BM. She is . No dizziness, SOB, RAMIREZ, vision changes. Lower extremity edema improving. Ready for discharge home today. We reviewed home postoperative care, activity restrictions, medications, and r eturn precautions regarding bleeding, infection, and preeclampsia symptoms. - ALLERGIES Allergies/Adverse Reactions: Allergies Allergy/AdvReac Type Severity Reaction Status Date / Time No Known Drug Allergies Allergy Verified 07/22/21 12:10 - MEDICATIONS Home Medications: Ambulatory Orders Medication Instructions Recorded Confirmed Sertraline [Zoloft] 50 mg PO DAILY 07/22/21 04/06/24 Acetaminophen [Tylenol] 650 mg PO Q6H PRN #30 tablet 04/09/24 Ferrous Sulfate 325 mg PO DAILY #30 tab 04/09/24 Ibuprofen [Motrin] 600 mg PO Q6HR PRN #30 tab 04/09/24 Labetalol [Trandate] 200 mg PO BID #56 tab 04/09/24 Senna [Senokot] 8.6 mg PO BID #28 tab 04/09/24 oxyCODONE [Roxicodone] 5 - 10 mg PO Q6H PRN #20 tab 04/09/24 - PHYSICAL EXAM AT DISCHARGE General Appearance: positive: No acute distress Respiratory: positive: No respiratory distress Abdomen: positive: Other (soft, appopriately TTP, non-distended. Fundus firm.) Extremities: positive: Non-tender (trace LE edema, no evidence of DVT) - LABS Result Diagrams: 04/08/24 05:08 04/07/24 05:43 - FOLLOW UP Follow Up: Follow up with Dr. Vidal for 1wk check.
--- NOTE | 2024-04-09 14:13 | Labor Flowsheet ---
Labor Flowsheet Datetime Report Generated by CPN: 04/09/2024 14:12 Datetime: 04/07/2024 12:00 Temperature (C): 36.9 Temperature Route: Oral Datetime: 04/07/2024 11:30 Respirations: 16 Datetime: 04/07/2024 11:15 Stage of : VITAL SIGNS NBP Sys/Milagro/Mean (mmHg): 142 : 86 Pulse: 85 Datetime: 04/07/2024 10:15 SpO2 (%): 98 Datetime: 04/07/2024 06:20 Duration (sec): 30-80 Datetime: 04/07/2024 06:00 UTERINE ACTIVITY Monitor Mode: External Frequency (min): none ASSESSMENT A Monitor Mode: External US FHR Baseline Rate : 115 Variability: Moderate 6-25 bpm Accelerations: None Decelerations: None Datetime: 04/07/2024 05:25 COMMUNICATION LaborFlag: Labor
--- NOTE | 2024-04-15 06:50 | Labor Flowsheet ---
Labor Flowsheet Datetime Report Generated by CPN: 04/15/2024 06:50 Datetime: 04/07/2024 12:00 Temperature (C): 36.9 Temperature Route: Oral Datetime: 04/07/2024 11:30 Respirations: 16 Datetime: 04/07/2024 11:15 Stage of : VITAL SIGNS NBP Sys/Milagro/Mean (mmHg): 142 : 86 Pulse: 85 Datetime: 04/07/2024 10:15 SpO2 (%): 98 Datetime: 04/07/2024 06:20 Duration (sec): 30-80 Datetime: 04/07/2024 06:00 UTERINE ACTIVITY Monitor Mode: External Frequency (min): none ASSESSMENT A Monitor Mode: External US FHR Baseline Rate : 115 Variability: Moderate 6-25 bpm Accelerations: None Decelerations: None Datetime: 04/07/2024 05:25 COMMUNICATION LaborFlag: Labor
== END 2024-04-09 14:00 | disposition home or self-care (01) | DRG 784 ==
LOC: FBP 05:20
PROVIDERS: ADMIT Obstetrics & Gynecology; ATTEND Obstetrics & Gynecology
PROC: 10D00Z1 Extraction of Products of Conception, Low, Open Approach (ICD-10-PCS; principal; 2024-04-07 07:30)
PROC: 0UB70ZZ Excision of Bilateral Fallopian Tubes, Open Approach (ICD-10-PCS; 2024-04-07 07:30)
DX: O34.211 Maternal care for low transverse scar from previous cesarean delivery (principal); D62 Acute posthemorrhagic anemia; O10.92 Unspecified pre-existing hypertension complicating childbirth; Z3A.38 38 weeks gestation of pregnancy; Z37.0 Single live birth; O99.824 Streptococcus B carrier state complicating childbirth; O99.214 Obesity complicating childbirth; E66.01 Morbid (severe) obesity due to excess calories; O99.344 Other mental disorders complicating childbirth; F41.9 Anxiety disorder, unspecified; N85.8 Other specified noninflammatory disorders of uterus; Z87.891 Personal history of nicotine dependence; F39 Unspecified mood [affective] disorder; O90.81 Anemia of the puerperium; Z30.2 Encounter for sterilization
CPT/HCPCS: 36415; 80053; 85025; 85027; 86850; 86900; 86901; A9270; J2372; J2795; J7120